=== PATIENT | female | born 1940 | race Caucasian/White ===

== ENCOUNTER 2017-01-02 22:01 | Inpatient (IN) | payer MEDICARE ==
--- NOTE | ~2017-01-02 | HP ---
History And Physical [address] [address] [place] [address] NAME: RAI MUSTAFA : 42 STATUS : DIS IN PAT#: [id number] AGE: 76 ADM/REG DATE : 01/02/17 MR#: [id number] REPORT SERV DATE: 01/20/17 DICTATED BY: ALMA ROBLEDO DATE: 01/20/17 REPORT STATUS : Draft TRANSCRIBED BY: DANA DATE: 01/20/17 DATE OF ADMISSION: 01/02/2017 CHIEF COMPLAINT: Fall at rehab with right hip pain. HISTORY OF PRESENT ILLNESS: Ms. Mustafa is a 76-year-old female who has multiple medical problems and was at a skilled rehab facility in [place]. She has had a protracted medical illness since requiring open heart surgery for acute AK in September of 2016. She required bypass surgery and had a prolonged complicated postop course. She subsequently required readmission on 12/01/2016 and was released in December of 2016, after she presented with shortness of breath and had a whiteout on her chest x-ray. The whiteout on chest x-ray was secondary to mucous plugging and resolved. She was stabilized and returned to [facility] for further rehab. She apparently had a fall at rehab and sustained pain in her right hip and was admitted with some bruising for orthopedic evaluation. 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 She was initially given medicine for pain control. She was not felt to be an operative candidate. Upon adjustment of therapy during the hospitalization. She demonstrated improvement. PAST MEDICAL HISTORY: End-stage renal disease, dialyzing Friday, Friday, Friday at [facility]; coronary artery disease, status post CABG; tracheostomy, 10/09/2016; hypertension; respiratory failure, postop; readmission for whiteout on chest x-ray due to mucous plugging; obstructive sleep apnea; atrial fibrillation; remote AK; aortic valve replacement; remote pneumonia; dysphagia requiring PEG tube; history of MRSA bacteremia; type 2 diabetes mellitus; past history of calciphylaxis; history of IVC filter. MEDICATIONS: Vitamin C 500 daily, aspirin, Lipitor, Cordarone, Coreg, Ceftin, Peridex, Colace, Lexapro, Neurontin, level 1 insulin sliding scale, Protonix, MiraLAX, Senokot, warfarin sliding scale, zinc sulfate, ProAmatine, and Zofran. ALLERGIES: SULFA, NITROFURANTOIN, CODEINE, AND SULFAMETHOXAZOLE. SOCIAL HISTORY: The patient has supportive family. No alcohol, tobacco products, or illicit drugs. REVIEW OF SYSTEMS: Severe right hip pain, gradually gaining strength with rehab, but still with some generalized weakness, swallowing improved and taking p.o. Severe right hip pain. Bruising on right shoulder and right upper extremity. No dysuria, melena, hemoptysis. Remainder of 12-point review of systems is negative. PHYSICAL EXAMINATION: GENERAL: Debilitated white female, mildly lethargic from analgesics. VITAL SIGNS: Blood pressure 113/53, temperature 98.4, respiratory rate 18, pulse 69. HEENT: Eyes, no scleral icterus. Pupils equal and reactive to light. Extraocular movements intact. Nares patent. No lesions. Throat, no injection. Mucous membranes History And Physical [address] [address] NAME: RAI MUSTAFA : 42 STATUS : DIS IN PAT#: [id number] AGE: 76 ADM/REG DATE : 01/02/17 MR#: [id number] REPORT SERV DATE: 01/20/17 DICTATED BY: ALMA ROBLEDO DATE: 01/20/17 REPORT STATUS : Draft TRANSCRIBED BY: DANA DATE: 01/20/17 moist. NECK: No thyromegaly, masses, or bruits. CHEST/LUNGS: Few late crackles posteriorly. Some scattered rhonchi. CARDIAC: Regular rate and rhythm. 1/6 systolic ejection murmur. No gallop. No rub. ABDOMEN: PEG noted. No hepatosplenomegaly, masses, or bruits. BREAST/PELVIC/RECTAL: Exam not performed. EXTREMITIES: No edema. Pain with movement of right lower extremity. No calf tenderness. DERMIS: No rash. No skin lesions. NEUROLOGIC: Generalized weakness. No lateralizing weakness. IMPRESSION: 1. [facility]. X-rays documenting avascular necrosis of the head of her right femur. 2. The patient is not a candidate for surgery. 3. End-stage renal disease, dialyzing Friday, Friday, Friday at [facility]. 4. Hypertension. 5. History of trach. 6. History of PEG. 7. Coronary artery disease with bypass grafting. 8. Remote pneumonia. 9. Obstructive sleep apnea. 10.Atrial fibrillation. 11.Aortic valve replacement. 12.History of myocardial infarction. PLAN: 1. Orthopedic consult. 2. Dialysis. 3. Monitor lab. CG/MODL Alma Robledo M.D. / [id number] CC: Yasmeen Mccray Lisa M
--- NOTE | ~2017-01-02 | DS ---
Discharge Summary [facility] [address] [place]. [address] NAME: RAI MUSTAFA : 42 STATUS : DIS IN PAT#: [id number] AGE: 76 ADM/REG DATE : 01/02/17 MR#: [id number] REPORT SERV DATE: 01/21/17 DICTATED BY: ALMA TELLEZ DATE: 01/20/17 REPORT STATUS : Draft TRANSCRIBED BY: DANA DATE: 01/20/17 ADMISSION DATE: 01/02/2017 DISCHARGE DATE: 01/07/2017 INDICATION FOR HOSPITALIZATION: Right hip pain. DISCHARGE DIAGNOSES: 1. Fall at skilled Facility with x-ray documentation of avascular necrosis of right femoral head and fracture. 2. The patient not felt to be an operative candidate. 3. End-stage renal disease, dialyzing Friday, Friday, Friday at [facility]. 4. Hypertension. 5. Anemia. 6. Obstructive sleep apnea. 7. History of atrial fibrillation. 8. Remote myocardial infarction. 9. Aortic valve replacement. 10.Prior tracheostomy. 11.Prior PEG tube. HOSPITAL COURSE: Ms. Mustafa is a 76-year-old female, who was undergoing rehab after a prolonged hospitalizations in 09/2016, 11/2016, and 12/2016. She apparently fell at the nursing facility and sustained bruising on her right upper extremity as well as pain on her right lower extremity and some bruising in her right lower extremity. X-rays documented a femoral head fracture associated with avascular necrosis. She was evaluated by Orthopedic Surgery, and she was not felt to be a candidate for surgical intervention. She was treated with analgesics and rehab with gradual improvement in her pain. She was felt stable for release at the time of discharge on 01/07/2017. She was eager to return to rehab for continued therapy. DISCHARGE MEDICATIONS: Tylenol 325 mg q.4h p.r.n.; albuterol nebulizer 3 mL of 0.83% via nebulizer four times daily p.r.n.; amiodarone 200 mg daily; aspirin 81 mg daily; Lipitor 20 mg daily; vitamin B complex with C and folic acid one capsule daily; Dulcolax one daily p.r.n.; carvedilol 3.125 mg twice daily; Peridex rinse 15 mL p.o. twice daily, swish and expectorate; Colace 100 mg twice daily, hold for loose stools; Lexapro 5 mg daily; Neurontin 100 mg twice daily; NovoLog sliding scale level 1; Lantus insulin 10 units subcu daily; midodrine 5 mg p.o. three times daily; milk of magnesia 30 mg daily p.r.n.; Zofran 4 mg q.6h p.r.n.; Protonix 40 mg p.o. b.i.d.; MiraLAX 17 g daily; Senokot two tabs p.o. twice daily p.r.n.; and warfarin 2.5 mg tablets at bedtime. ACTIVITY: The patient will progress activity per rehab. DIET: 2000-calorie ADA renal diet. FOLLOWUP: Followup will be on dialysis Friday, Friday, Friday at [facility] Discharge Summary [address] [address] NAME: RAI MUSTAFA JOSE : 42 STATUS : DIS IN PAT#: [id number] AGE: 76 ADM/REG DATE : 01/02/17 MR#: [id number] REPORT SERV DATE: 01/21/17 DICTATED BY: ALMA TELLEZ DATE: 01/20/17 REPORT STATUS : Draft TRANSCRIBED BY: DANA DATE: 01/20/17 Center. PATRICIO/DANA Alma Tellez M.D. / [id number] CC: Yasmeen Mccray
[~2017-01-02 22:01] MED LIST: ACET500CAP PO; ARANESP; ARANESP100 IV; ASAB PO; AURYXIA210 MG PO; B12 IJ; C5 PO; CAT1 PO; CINNAMON; CINNAMONPO PO; COREG12 PO; COREG25 PO; COREG3 PO; COREG6 PO; COUMADIN4 MG PO; CRAN CONC500 MG OR; CRANBERRY W/ VIT C PO; Cinnamon PO; DSS PO; EPOGEN4000 MG/ML IV; FLEX PO; HAIR/SKIN/NAILS VIT PO; HALF81 PO; L40 PO; LANTUS SC; LEVEMIR SC; LEXAPRO5 MG PO; LIPITOR20 PO; LOP25 PO; LOP50 PO; METHENAM HIP1 GM OR; MIRALAXPKT PO; NASONEX NAS; NEUR100 PO; NORV10 PO; NORV25 PO; NOVOLOG SC; PACERONE200 MG PO; PERIOGARD0.12 % MT; PHOSLO PO; PRAVAC PO; PREV30 PO; PROAMATINE10 MG PO; PROSTAT 101 IV; PROTONI1 PEG; PROVENTSOL INH; RENA-VITE PO; RENVELA800 MG PO; SENTAB PO; SEVE800T PO; VENOFER IV; VITC500 PO; ZINC220C PO; ZOFRAN4 PO
[2017-01-02] MEDS ORDERED: CORDARONE PO (22:11)
[2017-01-02] MEDS ORDERED: ASAB PO (22:11)
[2017-01-02] MEDS ORDERED: LIPITOR20 PO (22:12)
[2017-01-02] MEDS ORDERED: COREG3 PO (22:12)
[2017-01-02] MEDS ORDERED: PERIDEX PO (22:12)
[2017-01-02] MEDS ORDERED: DSS PO (22:13)
[2017-01-02] MEDS ORDERED: LEXAPRO5 MG PO (22:14)
[2017-01-02] MEDS ORDERED: LANTUSCART SC (22:14)
[2017-01-02] MEDS ORDERED: PROAMAT5 PO (22:14)
[2017-01-02] MEDS ORDERED: NEUR100 PO (22:14)
[2017-01-02] MEDS ORDERED: NOVOLOG SC (22:17)
[2017-01-02] MEDS ORDERED: MIRALAX POWDER1 PKT PO (22:17)
[2017-01-02] MEDS ORDERED: PROTONIX PO (22:17)
[2017-01-02] MEDS ORDERED: TRIPHROCAPS PO (22:18)
[2017-01-02] MEDS ORDERED: C25 PO (22:19)
[2017-01-02] MEDS ORDERED: ALBUTEROL0.083 % INH (22:24)
[2017-01-02] MEDS ORDERED: BISR PR (22:24)
[2017-01-02] MEDS ORDERED: MOMUD PO (22:25)
[2017-01-02] MEDS ORDERED: SENTAB PO (22:26)
[2017-01-02] MEDS ORDERED: ZOFRAN4 PO (22:26)
[2017-01-02] MEDS ORDERED: T PO (22:28)
[2017-01-02 22:43] LABS: BASOPHILS 0.3 %; BASOPHILS ABSOLUTE 0.02 10/3/uL (0.0-0.16); EOSINOPHILS 5.2 %; ER CBC TAT 0 Hrs 08 Mins; HEMATOCRIT 30.2 % (36.0-48.0); HEMOGLOBIN 9.4 g/dL (12.0-16.0); IMMATURE GRANULOCYTES 0.9 %; IMMATURE GRANULOCYTES ABSOLUTE 0.07 10/3/uL (0.0-0.11); LYMPHOCYTES 27.7 %; LYMPHOCYTES ABSOLUTE 2.13 10/3/uL (0.67-4.30); MEAN CORPUS HGB CONC 31.1 g/dL (32.0-36.0); MEAN CORPUSCULAR HEMOGLOB 29.7 pg (26.0-34.0); MEAN CORPUSCULAR VOLUME 95.6 fL (80-100); MEAN PLATELET VOLUME 10.4 fL (9.2-13.0); MONOCYTES ABSOLUTE 0.77 10/3/uL (0.21-1.20); NEUTROPHILS 55.9 %; PLATELET COUNT 246 10/3/uL (150-400); RED CELL COUNT 3.16 10/6/uL (4.0-5.6); WHITE BLOOD CELLS 7.7 10/3/uL (4.5-10.5)
[2017-01-02 22:47] LABS: MANUAL DIFF NO %
[2017-01-02 22:58] LABS: A/G RATIO 0.5 (0.7-1.9); ALBUMIN 2.7 G/DL (3.5-5.0); ALKALINE PHOSPHATASE 210 U/L (45-117); BUN (BLOOD UREA NITROGEN) 18 MG/DL (6-23); CALCIUM, SERUM 8.3 MG/DL (8.5-10.4); CHLORIDE, SERUM 96 MMOL/L (96-112); CO2 (CARBON DIOXIDE) 30 MMOL/L (24-34); CREATININE 3.11 MG/DL (0.55-1.02); GFR AFRICAN AMERICAN 16 ML/MIN (>=60); GFR NON AFRICAN AMERICAN 14 ML/MIN (>=60); GLOBULIN 5.2 G/DL (2.5-4.1); GLUCOSE, SERUM 317 MG/DL (60-99); POTASSIUM, SERUM 4.2 MMOL/L (3.5-5.3); SGOT(AST) 11 U/L (5-40); SGPT(ALT) 11 U/L (5-65); SODIUM, SERUM 137 MMOL/L (135-148); TOTAL BILIRUBIN 0.3 MG/DL (0-1.2); TOTAL PROTEIN 7.9 G/DL (6.0-8.5)
[2017-01-03 14:33] LABS: BASOPHILS 0.3 %; BASOPHILS ABSOLUTE 0.02 10/3/uL (0.0-0.16); EOSINOPHILS 4.7 %; EOSINOPHILS ABSOLUTE 0.32 10/3/uL (0.0-0.53); HEMATOCRIT 27.8 % (36.0-48.0); HEMOGLOBIN 8.5 g/dL (12.0-16.0); IMMATURE GRANULOCYTES 0.9 %; IMMATURE GRANULOCYTES ABSOLUTE 0.06 10/3/uL (0.0-0.11); LYMPHOCYTES 26.1 %; LYMPHOCYTES ABSOLUTE 1.76 10/3/uL (0.67-4.30); MANUAL DIFF NO %; MEAN CORPUS HGB CONC 30.6 g/dL (32.0-36.0); MEAN CORPUSCULAR HEMOGLOB 28.5 pg (26.0-34.0); MEAN CORPUSCULAR VOLUME 93.3 fL (80-100); MEAN PLATELET VOLUME 10.2 fL (9.2-13.0); MONOCYTES 8.6 %; MONOCYTES ABSOLUTE 0.58 10/3/uL (0.21-1.20); NEUTROPHILS 59.4 %; PLATELET COUNT 228 10/3/uL (150-400); RBC DISTRIBUTION WIDTH 16.9 % (12.0-16.0); RED CELL COUNT 2.98 10/6/uL (4.0-5.6); WHITE BLOOD CELLS 6.7 10/3/uL (4.5-10.5)
[2017-01-03 14:44] LABS: ALBUMIN 2.3 G/DL (3.5-5.0); CHLORIDE, SERUM 99 MMOL/L (96-112); CO2 (CARBON DIOXIDE) 27 MMOL/L (24-34); GFR AFRICAN AMERICAN 13 ML/MIN (>=60); GFR NON AFRICAN AMERICAN 11 ML/MIN (>=60); GLUCOSE, SERUM 286 MG/DL (60-99); PHOSPHORUS, SERUM 3.5 MG/DL (2.5-4.5); POTASSIUM, SERUM 4.3 MMOL/L (3.5-5.3); SODIUM, SERUM 136 MMOL/L (135-148)
[2017-01-03 14:47] LABS: BUN (BLOOD UREA NITROGEN) 23 MG/DL (6-23); CREATININE 3.74 MG/DL (0.55-1.02)
[2017-01-04 11:32] LABS: BASOPHILS 0.7 %; BASOPHILS ABSOLUTE 0.05 10/3/uL (0.0-0.16); EOSINOPHILS 3.6 %; EOSINOPHILS ABSOLUTE 0.27 10/3/uL (0.0-0.53); HEMOGLOBIN 9.5 g/dL (12.0-16.0); IMMATURE GRANULOCYTES 0.7 %; IMMATURE GRANULOCYTES ABSOLUTE 0.05 10/3/uL (0.0-0.11); LYMPHOCYTES 22.7 %; MEAN CORPUS HGB CONC 29.9 g/dL (32.0-36.0); MEAN CORPUSCULAR HEMOGLOB 29.8 pg (26.0-34.0); MONOCYTES 8.9 %; MONOCYTES ABSOLUTE 0.67 10/3/uL (0.21-1.20); NEUTROPHILS 63.4 %; NEUTROPHILS ABSOLUTE 4.75 10/3/uL (2.02-8.40); PLATELET COUNT 221 10/3/uL (150-400); RBC DISTRIBUTION WIDTH 17.2 % (12.0-16.0); RED CELL COUNT 3.19 10/6/uL (4.0-5.6); WHITE BLOOD CELLS 7.5 10/3/uL (4.5-10.5)
[2017-01-04 11:33] LABS: HEMATOCRIT 31.8 % (36.0-48.0)
[2017-01-04 11:34] LABS: MANUAL DIFF NO %; MEAN CORPUSCULAR VOLUME 99.7 fL (80-100)
[2017-01-04 11:38] LABS: INTERNATIONAL NORMAL RATI 2.5 UNITS (-)
[2017-01-04 11:39] LABS: PROTIME (NOT ORD) 26.6 SEC (12.0-14.5)
[2017-01-04 11:42] LABS: ALBUMIN 2.5 G/DL (3.5-5.0); CALCIUM, SERUM 8.3 MG/DL (8.5-10.4); CHLORIDE, SERUM 99 MMOL/L (96-112); CO2 (CARBON DIOXIDE) 28 MMOL/L (24-34); GFR AFRICAN AMERICAN 19 ML/MIN (>=60); GFR NON AFRICAN AMERICAN 17 ML/MIN (>=60); GLUCOSE, SERUM 298 MG/DL (60-99); PHOSPHORUS, SERUM 2.9 MG/DL (2.5-4.5); POTASSIUM, SERUM 4.4 MMOL/L (3.5-5.3); SODIUM, SERUM 136 MMOL/L (135-148)
[2017-01-04 11:43] LABS: BUN (BLOOD UREA NITROGEN) 13 MG/DL (6-23); CREATININE 2.69 MG/DL (0.55-1.02)
[2017-01-05 07:02] LABS: INTERNATIONAL NORMAL RATI 2.5 UNITS (-); PROTIME (NOT ORD) 26.5 SEC (12.0-14.5)
[2017-01-05 07:06] LABS: ALBUMIN 2.4 G/DL (3.5-5.0); BUN (BLOOD UREA NITROGEN) 19 MG/DL (6-23); CALCIUM, SERUM 8.9 MG/DL (8.5-10.4); CHLORIDE, SERUM 100 MMOL/L (96-112); CO2 (CARBON DIOXIDE) 26 MMOL/L (24-34); CREATININE 3.36 MG/DL (0.55-1.02); GFR AFRICAN AMERICAN 15 ML/MIN (>=60); GFR NON AFRICAN AMERICAN 13 ML/MIN (>=60); GLUCOSE, SERUM 103 MG/DL (60-99); PHOSPHORUS, SERUM 3.5 MG/DL (2.5-4.5); POTASSIUM, SERUM 4.6 MMOL/L (3.5-5.3); SODIUM, SERUM 136 MMOL/L (135-148)
[2017-01-06 05:36] LABS: ALBUMIN 2.2 G/DL (3.5-5.0); CALCIUM, SERUM 8.6 MG/DL (8.5-10.4); CHLORIDE, SERUM 98 MMOL/L (96-112); CO2 (CARBON DIOXIDE) 24 MMOL/L (24-34); GFR AFRICAN AMERICAN 11 ML/MIN (>=60); GFR NON AFRICAN AMERICAN 10 ML/MIN (>=60); GLUCOSE, SERUM 93 MG/DL (60-99); PHOSPHORUS, SERUM 3.6 MG/DL (2.5-4.5); POTASSIUM, SERUM 5.2 MMOL/L (3.5-5.3); SODIUM, SERUM 133 MMOL/L (135-148)
[2017-01-06 05:37] LABS: BUN (BLOOD UREA NITROGEN) 28 MG/DL (6-23); CREATININE 4.28 MG/DL (0.55-1.02)
[2017-01-06 15:00] LABS: INTERNATIONAL NORMAL RATI 2.6 UNITS (-); PROTIME (NOT ORD) 27.3 SEC (12.0-14.5)
[2017-01-06 15:50] LABS: BASOPHILS 0.3 %; BASOPHILS ABSOLUTE 0.02 10/3/uL (0.0-0.16); EOSINOPHILS 6.7 %; EOSINOPHILS ABSOLUTE 0.42 10/3/uL (0.0-0.53); HEMATOCRIT 28.7 % (36.0-48.0); HEMOGLOBIN 9.1 g/dL (12.0-16.0); IMMATURE GRANULOCYTES 0.5 %; IMMATURE GRANULOCYTES ABSOLUTE 0.03 10/3/uL (0.0-0.11); LYMPHOCYTES 26.5 %; LYMPHOCYTES ABSOLUTE 1.66 10/3/uL (0.67-4.30); MEAN CORPUSCULAR HEMOGLOB 29.8 pg (26.0-34.0); MONOCYTES 7.3 %; MONOCYTES ABSOLUTE 0.46 10/3/uL (0.21-1.20); NEUTROPHILS 58.7 %; NEUTROPHILS ABSOLUTE 3.67 10/3/uL (2.02-8.40); PLATELET COUNT 229 10/3/uL (150-400); RBC DISTRIBUTION WIDTH 17.2 % (12.0-16.0); RED CELL COUNT 3.05 10/6/uL (4.0-5.6); WHITE BLOOD CELLS 6.3 10/3/uL (4.5-10.5)
[2017-01-06 15:52] LABS: MANUAL DIFF NO %; MEAN CORPUS HGB CONC 31.7 g/dL (32.0-36.0); MEAN CORPUSCULAR VOLUME 94.1 fL (80-100)
[2017-01-07 07:29] LABS: BASOPHILS 0.5 %; BASOPHILS ABSOLUTE 0.03 10/3/uL (0.0-0.16); EOSINOPHILS 7.1 %; EOSINOPHILS ABSOLUTE 0.43 10/3/uL (0.0-0.53); HEMATOCRIT 27.3 % (36.0-48.0); HEMOGLOBIN 8.2 g/dL (12.0-16.0); IMMATURE GRANULOCYTES 0.8 %; IMMATURE GRANULOCYTES ABSOLUTE 0.05 10/3/uL (0.0-0.11); LYMPHOCYTES 27.2 %; LYMPHOCYTES ABSOLUTE 1.64 10/3/uL (0.67-4.30); MANUAL DIFF NO %; MEAN CORPUSCULAR HEMOGLOB 28.6 pg (26.0-34.0); MEAN CORPUSCULAR VOLUME 95.1 fL (80-100); MEAN PLATELET VOLUME 9.8 fL (9.2-13.0); MONOCYTES 8.3 %; NEUTROPHILS 56.1 %; NEUTROPHILS ABSOLUTE 3.39 10/3/uL (2.02-8.40); PLATELET COUNT 219 10/3/uL (150-400); RBC DISTRIBUTION WIDTH 17.3 % (12.0-16.0); RED CELL COUNT 2.87 10/6/uL (4.0-5.6)
[2017-01-07 07:36] LABS: INTERNATIONAL NORMAL RATI 2.2 UNITS (-); PROTIME (NOT ORD) 24.6 SEC (12.0-14.5)
[2017-01-07 07:51] LABS: ALBUMIN 2.2 G/DL (3.5-5.0); CALCIUM, SERUM 8.5 MG/DL (8.5-10.4); CHLORIDE, SERUM 101 MMOL/L (96-112); GFR AFRICAN AMERICAN 21 ML/MIN (>=60); GFR NON AFRICAN AMERICAN 18 ML/MIN (>=60); GLUCOSE, SERUM 86 MG/DL (60-99); PHOSPHORUS, SERUM 3.4 MG/DL (2.5-4.5); POTASSIUM, SERUM 4.5 MMOL/L (3.5-5.3); SODIUM, SERUM 138 MMOL/L (135-148)
[2017-01-07 07:52] LABS: BUN (BLOOD UREA NITROGEN) 12 MG/DL (6-23); CO2 (CARBON DIOXIDE) 29 MMOL/L (24-34); CREATININE 2.54 MG/DL (0.55-1.02)
[2017-02-01] MEDS ORDERED: ASAB PO (22:50)
[2017-02-01] MEDS ORDERED: CORDARONE PO (22:50)
[2017-02-01] MEDS ORDERED: COREG3 PO (22:51)
[2017-02-01] MEDS ORDERED: LIPITOR20 PO (22:51)
[2017-02-01] MEDS ORDERED: PERIDEX PO (22:53)
[2017-02-01] MEDS ORDERED: C1 PO (22:53)
[2017-02-01] MEDS ORDERED: DSS PO (22:54)
[2017-02-01] MEDS ORDERED: LEXAPRO5 MG PO (22:54)
[2017-02-01] MEDS ORDERED: NEUR100 PO (22:54)
[2017-02-01] MEDS ORDERED: MAGOX4 PO (22:55)
[2017-02-01] MEDS ORDERED: LANTUSCART SC (22:55)
[2017-02-01] MEDS ORDERED: PROAMAT5 PO (22:56)
[2017-02-01] MEDS ORDERED: NOVOPEN SC (22:57)
[2017-02-01] MEDS ORDERED: PRILOSEC40 MG PO (22:57)
[2017-02-01] MEDS ORDERED: MIRALAX POWDER1 PKT PO (22:58)
[2017-02-01] MEDS ORDERED: TRIPHROCAPS PO (22:58)
[2017-02-01] MEDS ORDERED: BETADINE SOLUTIO4 OZ TOP (22:59)
[2017-02-01] MEDS ORDERED: T PO (23:00)
[2017-02-01] MEDS ORDERED: ALBUTEROL0.083 % INH (23:00)
[2017-02-01] MEDS ORDERED: NORCO1 TA1 PO (23:01)
[2017-02-01] MEDS ORDERED: BISR PR (23:01)
[2017-02-01] MEDS ORDERED: ZOFRAN4 PO (23:02)
[2017-02-01] MEDS ORDERED: MOMUD PO (23:02)
[2017-02-01] MEDS ORDERED: SENTAB PO (23:03)
== END 2017-01-07 15:50 | DRG 553 ==
LOC: ER 22:01 → 4SO 22:18
PROVIDERS: Emergency Medicine; Internal Medicine Nephrology; Registered Nurse
PROC: 5A1D60Z (ICD-10-PCS; principal; 2017-01-03)
DX: M87.851 Other osteonecrosis, right femur (principal); S72.011A Unspecified intracapsular fracture of right femur, initial encounter for closed fracture; N18.6 End stage renal disease; E11.22 Type 2 diabetes mellitus with diabetic chronic kidney disease; I48.2 Chronic atrial fibrillation; I50.9 Heart failure, unspecified; W18.39XA Other fall on same level, initial encounter; Y92.239 Unspecified place in hospital as the place of occurrence of the external cause; M25.511 Pain in right shoulder; G47.33 Obstructive sleep apnea (adult) (pediatric); I25.10 Atherosclerotic heart disease of native coronary artery without angina pectoris; I25.2 Old myocardial infarction; Z99.2 Dependence on renal dialysis; Z79.01 Long term (current) use of anticoagulants; M79.671 Pain in right foot; R53.1 Weakness; Z88.2 Allergy status to sulfonamides; Z88.5 Allergy status to narcotic agent; Z88.1 Allergy status to other antibiotic agents; Z88.8 Allergy status to other drugs, medicaments and biological substances; Z79.891 Long term (current) use of opiate analgesic; Z79.82 Long term (current) use of aspirin; Z79.4 Long term (current) use of insulin; Z95.2 Presence of prosthetic heart valve; Z95.1 Presence of aortocoronary bypass graft
CPT/HCPCS: 71010; 73060-RT; 73630-RT; 73700; 80053; 80069; 82962; 83735; 84550; 85025; 85610; 94640; 97110-GP; 97162-GP; 97165-GO; 97530-GP; 97535-GO; 99285; A9270-GY; G0257; G8978-CL-GP; G8979-CL-GP

== ENCOUNTER 2017-02-01 23:03 | Inpatient (IN) | payer MEDICARE ==
--- NOTE | ~2017-02-01 | HP ---
History And Physical [address] [id number] [place]. [address] NAME: RAI ALICEA : 42 STATUS : ADM IN PAT#: [id number] AGE: 76 ADM/REG DATE : 02/02/17 MR#: [id number] REPORT SERV DATE: 02/02/17 DICTATED BY: CARMELO MAGALLON DATE: 02/02/17 REPORT STATUS : Draft TRANSCRIBED BY: MODRicardo DATE: 02/02/17 DATE OF ADMISSION: 02/02/2017 CHIEF COMPLAINT: Fevers, diarrhea, and nausea. HISTORY OF PRESENT ILLNESS: The patient recorded to have a 101 fever in the ER. She states she was in her usual state of health but has been having fevers and chills over the last two to three days. She had a recent bout of gastroenteritis that was traveling through the [facility]. The patient with an extensive history of emergent bypass in 09/2016 with prolonged postoperative course requiring tracheostomy, PEG placement noted to have a vascular necrosis of the right hip nonoperative in the setting of hypertension, obstructive sleep apnea, diabetes. She has also had a history of MRSA sepsis in the recent past, atrial fibrillation on Coumadin therapy as well. Workup in the ER revealed a hemoglobin of 6.4, transfused 2 units to 7.6 today. White count noted to be 12.3, and we are asked to admit for further evaluation and management of multiple medical problems including fevers and anemia primarily. PAST MEDICAL HISTORY: 1. Extensive as noted above but includes end-stage renal disease, hemodialysis on Friday, Friday, and Friday at [facility]. 2. Coronary artery disease, status post emergent CABG in 09/2016 with postoperative course with respiratory failure, tracheostomy 10/09/2016, PEG tube placement as well. Both have since been removed. 3. Hypertension. 4. Obstructive sleep apnea. 5. Atrial fibrillation on Coumadin therapy. 6. History of mucous plugging with whiteout of chest x-ray. 7. Aortic valve replacement. 8. MRSA sepsis. 9. Diabetes mellitus type 2. 10.History of calciphylaxis. 11.History of IVC filter. 12.Chronic debility currently undergoing therapy. MEDICATIONS: Include Tylenol, albuterol, amiodarone 200 mg daily, aspirin 81 mg daily, Lipitor 20 mg at bedtime, B complex vitamin daily, Dulcolax p.r.n., Coreg 1.5625 mg p.o. b.i.d., chlorhexidine, Colace p.r.n., Lexapro 5 mg daily, Neurontin 100 mg b.i.d., Golden p.r.n., sliding-scale insulin and glargine insulin 10 units daily, magnesium oxide 400 mg daily, midodrine 5 mg with meals, milk of magnesia p.r.n., Prilosec 40 mg b.i.d., Zofran 4 mg every 6 hours p.r.n., MiraLax daily, Betadine daily, Senokot p.r.n. for constipation, and Coumadin 3.5 mg daily. ALLERGIES: MULTIPLE INCLUDE NITROFURANTOIN. ADVERSE REACTIONS INCLUDE SULFA, CODEINE, FLUCONAZOLE, AND AMOXICILLIN. SOCIAL HISTORY: Currently resides at [facility] and is transported to dialysis by History And Physical [address] [address] NAME: RAI ALICEA JOSE : 42 STATUS : ADM IN [facility]#: [id number] AGE: 76 ADM/REG DATE : 02/02/17 MR#: [id number] REPORT SERV DATE: 02/02/17 DICTATED BY: CARMELO MAGALLON DATE: 02/02/17 REPORT STATUS : Draft TRANSCRIBED BY: DANA DATE: 02/02/17 ambulance. Denies tobacco, alcohol, or illicit drug use. FAMILY HISTORY: No history of renal disease. REVIEW OF SYSTEMS: Negative except as mentioned in HPI. PHYSICAL EXAMINATION: VITAL SIGNS: Temperature 98.8, blood pressure 119/36, pulse is 54, respiratory rate is 20. GENERAL: Well-developed, chronically ill-appearing, white female, in no acute distress. HEENT: Normocephalic and atraumatic. Pupils are equal, round, and reactive to light. Mucous membranes are dry. NECK: Supple. No thyromegaly. CARDIOVASCULAR: Regular rate and rhythm. No murmurs. Normal S1, S2. RESPIRATORY: Clear to auscultation bilaterally with decreased breath sounds at bases. ABDOMEN: Soft, nontender, nondistended. Positive bowel sounds. EXTREMITIES: No clubbing, cyanosis, or edema. Bilateral dry ulcerations with Betadine noted of medial aspect of bilateral feet at bunion regions. SKIN: No rashes or ulcerations. NEURO: Moves all extremities well. No focal deficits. Normal sensation in all extremities. Generalized weakness noted. PSYCH: Oriented x3 with flat affect. LABORATORY DATA: Sodium 138, potassium 4.6, chloride 98, bicarb 29, BUN is 30, creatinine of 3.55, glucose is 98, calcium 8.2. White count 12.3, hemoglobin 7.6, platelet count 287. INR is 1.9. Albumin 2.1. LFTs are normal. Lactic acid 1.3. Flu is negative. Chest x-ray reveals mild congestive changes. ASSESSMENT AND PLAN: 1. End-stage renal disease, [facility], hemodialysis Friday, protect access. 2. Fevers with leukocytosis. Afebrile thus far. Blood cultures and stool studies are pending. Check procalcitonin. Follow up on cultures. Check CT scan of chest, abdomen, and pelvis given extensive hospitalizations. Currently residing at care home. ID consulted if no better. Initiate empiric antibiotics including Levaquin. 3. Anemia. Hemoglobin low on admission on Coumadin therapy. Heme check stools. Status post transfusion. Check C. diff. Stool for C. diff as well. If heme stools are positive, we will consult GI for evaluation. Initiate diet at this time. 4. Diabetes mellitus type 2. Sliding scale insulin and Accu-Cheks. 5. Hypertension. Resume home medications. 6. Chronic hypotension. Resume midodrine. 7. Bilateral foot ulcerations. Does not appear to be source of infection. Plan is for continued wound care. 8. Atrial fibrillation. Hold Coumadin secondary to anemia. Follow up on heme stools. 9. Prophylaxis. SCDs. History And Physical [address] [address] NAME: RAI ALICEA JOSE : 42 STATUS : ADM IN [facility]#: [id number] AGE: 76 ADM/REG DATE : 02/02/17 MR#: [id number] REPORT SERV DATE: 02/02/17 DICTATED BY: CARMELO MAGALLON DATE: 02/02/17 REPORT STATUS : Draft TRANSCRIBED BY: DANA DATE: 02/02/17 NCP/MODL Carmelo Magallon M.D. / [id number] CC: Yasmeen Doll
--- NOTE | ~2017-02-01 | EGD ---
EGD REPORT [facility] [address] [place] [address] NAME: NANETTE MUSTAFA : 42 STATUS : ADM IN PAT#: [id number] AGE: 76 ADM/REG DATE : 02/02/17 MR#: [id number] REPORT SERV DATE: 02/05/17 DICTATED BY: JOSÉ MANUEL SIDDIQUI DATE: 02/05/17 REPORT STATUS : Draft TRANSCRIBED BY: [facility] DATE: 02/05/17 [facility] Patient Name: Nanette Mustafa Date of : 1940 Attending MD: JOSÉ MANUEL SIDDIQUI MD Procedure Date No Time: 02/05/2017 Procedure: Colonoscopy Indications: Anemia with heme positive stool; prior negative EGD and colonoscopy Referring MD: AMERICA BLANCO Medicines: Monitored Anesthesia Care Complications: No immediate complications. Estimated blood loss: None. Procedure: Pre-Anesthesia Assessment: - ASA Grade Assessment: IV - A patient with severe systemic disease that is a constant threat to life. After I obtained informed consent, the scope was passed under direct vision. Throughout the procedure, the patient's blood pressure, pulse, and oxygen saturations were monitored continuously. The CF [id number] was introduced through the anus and advanced to the cecum, identified by appendiceal orifice and ileocecal valve. The colonoscopy was performed without difficulty. The patient tolerated the procedure well. The quality of the bowel preparation was fair. Findings: The perianal and digital rectal examinations were normal. Pertinent negatives include no palpable rectal lesions. Multiple small-mouthed diverticula were found in the sigmoid colon, in the transverse colon, in the ascending colon and in the cecum. The exam was otherwise without abnormality on direct and retroflexion views. Impression: - Diverticulosis in the sigmoid colon, in the transverse colon, in the ascending colon and in the cecum. - The examination was otherwise normal on direct and retroflexion views. Recommendation: - Perform an upper GI endoscopy today. - To visualize the small bowel, perform video capsule endoscopy today. Procedure Code(s): --- Professional --- 36483, Colonoscopy, flexible, proximal to splenic flexure; diagnostic, with or without collection of EGD REPORT [address] [place]. [address] NAME: NANETTE MUSTAFA JOSE : 42 STATUS : ADM IN [facility]#: [id number] AGE: 76 ADM/REG DATE : 02/02/17 MR#: [id number] REPORT SERV DATE: 02/05/17 DICTATED BY: JOSÉ MANUEL SIDDIQUI DATE: 02/05/17 REPORT STATUS : Draft TRANSCRIBED BY: [employer] DATE: 02/05/17 specimen(s) by brushing or washing, with or without colon decompression (separate procedure) Diagnosis Code(s): --- Professional --- K57.30, Diverticulosis of large intestine without perforation or abscess without bleeding D64.9, Anemia, unspecified CPT copyright 2013 [employer]. All rights reserved. The codes documented in this report are preliminary and upon training and development officer review may be revised to meet current compliance requirements. José Manuel Siddiqui MD JOSÉ MANUEL SIDDIQUI MD 02/05/2017 7:55 AM This report has been signed electronically. Number of Addenda: 0 Note Initiated On: 02/05/2017 7:14 AM Scope Withdrawal Time 0 hours 9 minutes [address] [place], [place] [address]mar[place] [address]
--- NOTE | ~2017-02-01 | CN ---
Consultation Report [facility] [address] [place]. [address] NAME: RAI MUSTAFA : 42 STATUS : ADM IN PAT#: [id number] AGE: 76 ADM/REG DATE : 02/02/17 MR#: [id number] REPORT SERV DATE: 02/03/17 DICTATED BY: JASEN SMITH DATE: 02/03/17 REPORT STATUS : Draft TRANSCRIBED BY: MODRicardo DATE: 02/03/17 GI CONSULTATION DATE OF CONSULTATION: 02/03/2017 REASON FOR CONSULTATION: Evaluation and management of anemia, Hemoccult-positive stools. HISTORY OF PRESENT ILLNESS: Ms. Mustafa is a 76-year-old female patient, who has been seen by us in the past. She was admitted on 02/02/2017 from the group home secondary to fevers and chills. She was found to have a low hemoglobin at 6.4 when she was sent over, presently her hemoglobin is 8.4. She has received packed red blood cells. Her stools were found to be Hemoccult positive. It appears that she has been having fever and chills over the last two-three days as well as recovering from a recent bout of gastroenteritis that was seen throughout by several people in the group home where she was residing. We saw her in 10/2016 for a PEG tube following a non-STEMI with her undergoing redo CABG x1 with several setbacks from that surgery including septic shock secondary to pneumonia, mucous plugging, atrial fibrillation, failure to wean from the vent. We subsequently placed a PEG tube on 10/16/2016. She tolerated that well. She said it has been out for several months secondary to infection. She was seen again in 11/2016. Dr. Szymanski performed colonoscopy secondary to melena complaint with findings on that exam showing melanosis coli, diverticulosis of the sigmoid colon, she had polyps in the ascending colon that were removed as well as polyps in the rectosigmoid colon removed, a single nonbleeding colonic angioectasia that was treated with thermal therapy. She then underwent an EGD by Dr. Szymanski on that same day, 11/03/2016, with the Z-line being irregular. Biopsies were taken of hiatal hernia. The PEG tube at that time was normal as well as a normal duodenum. Talking to the patient during her dialysis treatment, she is adamant she is not undergoing another colonoscopy. She states she herself has not seen any blood and "I have been through so much, I did not want to do this again." I have discussed with her the rationale, possibility of colonic AVMs bleeding. She could be Hemoccult positive secondary to recent gastroenteritis, but with her being on Coumadin therapy if she has AVMs that is needed to be treated, however, she still adamantly declines colonoscopy at this point in time. Her C diff stool tests have been negative. Occult blood has been positive x1. She has had a CT of the abdomen and pelvis, which was nondiagnostic from a GI standpoint. CT of the chest is pending. I have discussed with the patient. We will follow along. We will revisit colonoscopy with her in the morning if she has joo blood and/or decrease in her hemoglobin. PAST MEDICAL HISTORY: End-stage renal disease requiring dialysis, coronary artery disease status post emergent CABG in 09/2016; subsequently suffering from respiratory failure with trach and PEG since those have been both removed, hypertension, obstructive sleep apnea; atrial fibrillation, on Coumadin; mucous plugging; aortic valve replacement; MRSA sepsis; diabetes type 2; IVC filter placement; chronic debility, undergoing therapy; diverticulosis; colon polyps; melanosis coli; internal hemorrhoids; vaginal cancer, status post cryotherapy; hiatal hernia. Consultation Report [address] [place]. [address] NAME: RAI MUSTAFA : 42 STATUS : ADM IN [facility]#: [id number] AGE: 76 ADM/REG DATE : 02/02/17 MR#: [id number] REPORT SERV DATE: 02/03/17 DICTATED BY: JASEN SMITH DATE: 02/03/17 REPORT STATUS : Draft TRANSCRIBED BY: DANA DATE: 02/03/17 FAMILY HISTORY: Noncontributory from GI standpoint. SOCIAL HISTORY: . Lives at the group home in [place]. No alcohol, tobacco, or illicits. ALLERGIES: LISTED TO SULFA, CODEINE, FLUCONAZOLE, AMOXICILLIN, AND NITROFURANTOIN. HOME MEDICATIONS: Tylenol, albuterol, Cordarone, aspirin, Lipitor, B-complex with folic acid, Dulcolax, Coreg, Peridex rinse, Colace, Lexapro, Neurontin, Henriette, NovoLog, Lantus, magnesium oxide, ProAmatine, milk of magnesia, Prilosec, Zofran, MiraLAX, Betadine, Senokot, and Coumadin. REVIEW OF SYSTEMS: A 10-point review of systems is obtained. Pertinent positives addressed in the history of present illness. PHYSICAL EXAMINATION: VITAL SIGNS: Temperature maximum is 100.2, presently 99.0; pulse is 63, respirations 14, blood pressure 130/62. NEURO: Reveals a 76-year-old female, resting in bed in dialysis treatment unit #2. She awakens to her name. She is oriented x3. GENERAL: She is cooperative. She is in no obvious acute distress. She is chronically ill appearing. HEAD, EARS, EYES, NOSE, AND THROAT: Anicteric. Pupils are equal, round, and reactive to light and accommodation. Normocephalic and atraumatic. NECK: No JVD. No palpable nodes. LUNGS: Diminished throughout. Normal respiratory effort exhibited. CARDIOVASCULAR: Regular rate and rhythm. ABDOMEN: Soft, nontender, nondistended, with active bowel sounds in all four quadrants. Extremities: Notable for bilateral lower extremity ulcers. SKIN: Dry and intact with notable bruising areas. PERTINENT LABORATORY DATA: Sodium 138, potassium 4.6, BUN is 30, creatinine 3.55. White count 12.3, hemoglobin 8.4, hematocrit 26.5. INR of 1.9. C diff stool negative, occult blood positive. ASSESSMENT: 1. Acute on chronic anemia. 2. Hemoccult-positive stools without overt gastrointestinal bleeding. 3. End-stage renal disease with dialysis dependence. 4. Fever and leukocytosis. 5. History of colonic arteriovenous malformations, treated in November. 6. Recent gastroenteritis bout. 7. Atrial fibrillation, on Coumadin. Consultation Report [address] [address] NAME: RAI MUSTAFA : 42 STATUS : ADM IN [facility]#: [id number] AGE: 76 ADM/REG DATE : 02/02/17 MR#: [id number] REPORT SERV DATE: 02/03/17 DICTATED BY: JASEN SMITH DATE: 02/03/17 REPORT STATUS : Draft TRANSCRIBED BY: DANA DATE: 02/03/17 PLAN: 1. We will monitor hemoglobin and hematocrit. 2. Monitor for gross GI bleeding. The patient at this point in time is adamant she is not having another colonoscopy since she just had one on 11/03/2016. 3. We will revisit with the patient in the morning. We will reassess hemoglobin, GI blood loss, and discuss colonoscopy further. DARIA/DANA [place] TRISHA [place] / [id number] CC: Yasmeen Doll LISA M *
--- NOTE | ~2017-02-01 | DS ---
Discharge Summary [place] [address] [facility] [place]. [address] NAME: RAI ALICEA : 42 STATUS : DIS IN PAT#: [id number] AGE: 76 ADM/REG DATE : 02/02/17 MR#: [id number] REPORT SERV DATE: 02/14/17 DICTATED BY: ALMA TELLEZ DATE: 02/13/17 REPORT STATUS : Draft TRANSCRIBED BY: DANA DATE: 02/13/17 Data Collection from hospitalization DISCHARGE DIAGNOSIS(ES): 1. Fever, elevated WBCs. 2. Gastrointestinal bleed? of small bowel tumor. 3. Acute on chronic anemia secondary to gastrointestinal bleed. 4. End-stage renal disease. 5. Atrial fibrillation. Coumadin on hold. 6. Diabetes mellitus. CONSULTATIONS: TRISHA Wallace. PROCEDURES PERFORMED: 1. CT of the abdomen and pelvis without contrast, 02/02/2017. 2. CT of the chest without contrast, 02/02/2017. 3. Colonoscopy, 02/05/2017. 4. Upper gastrointestinal endoscopy, 02/05/2017. 5. CT of the abdomen and pelvis with contrast, 02/07/2017. MEDICATIONS: Aspirin 81 mg daily, Lipitor 20 mg at bedtime, amiodarone 200 mg daily, Coreg 1.5625 mg twice daily, Peridex Rinse 15 mL twice daily, Lexapro 5 mg daily, Neurontin 100 mg twice daily, Lantus SoloSTAR 10 units subcutaneously daily, NovoLog insulin level 1 sliding scale before meals and at bedtime, Claritin 10 mg daily, Mag-Ox 400 mg daily, Prilosec 40 mg before breakfast and supper, Florastor one twice daily, ProAmatine 5 mg with meals, Tylenol 325 to 650 mg every four hours as needed, Tylenol 650 mg every four hours as needed, Dulcolax 10 mg rectally daily as needed, Colace 100 mg twice daily, [place] 5/325 one every six hours as needed, nitroglycerin 0.4 mg sublingually as needed, Zofran 4 mg every six hours as needed, Senokot two tablets twice daily as needed, albuterol one nebulizer four times daily as needed, MiraLAX powder one packet daily, B complex with C and folic acid one daily, Betadine solution apply twice daily, milk of magnesia 30 mL daily as needed. CONDITION AT DISCHARGE: Upon discharge, she did appear to be doing well and had no complaints. DISPOSITION: She had been discharged with transfer to [facility] to continue a GI soft diet. She was also to continue oxygen at 1 L as directed. She was to continue with Physical Therapy. She was to follow up with her GI physician in two to three weeks. HOSPITAL COURSE: This patient recorded to have a 101 degree fever in the emergency room. She stated that she was in her usual state of health, but had been having fevers and chills over the last two to three days prior to admission. She had a recent bout of gastroenteritis that was traveling through the [facility]. She had an extensive history of emergent bypass in 09/2016 with prolonged postoperative course requiring tracheostomy, PEG placement, and noted to have avascular necrosis of the right hip, nonoperative, in the setting of hypertension, obstructive sleep apnea, and diabetes. She had also had a history of MRSA sepsis in the recent past; atrial fibrillation, on Coumadin therapy as well. Workup in the emergency room had revealed a hemoglobin of 6.4, Discharge Summary [address] [address] NAME: RAI ALICEA : 42 STATUS : DIS IN PAT#: [id number] AGE: 76 ADM/REG DATE : 02/02/17 MR#: [id number] REPORT SERV DATE: 02/14/17 DICTATED BY: ALMA TELLEZ DATE: 02/13/17 REPORT STATUS : Draft TRANSCRIBED BY: DANA DATE: 02/13/17 transfused 2 units with a hemoglobin following this at 7.6, white count noted to be 12.3, and she was admitted for further evaluation and management of multiple medical problems including fever and anemia primarily. Upon admission to the hospital, she had been placed on an n.p.o. diet. She did undergo the above transfusion. She was placed on Protonix 80 mg IV twice daily as well as electrolyte replacement protocol. She did undergo the above CT of the abdomen and pelvis without contrast, as well as CT of the chest without contrast. Following the day of admission, she had been evaluated by [facility] as well as Dr. José Manuel Espino for GI evaluation, and her hemoglobin and hematocrit were to be monitored, and she was also to be monitored for gross GI bleeding. At that point, she was adamant that she was not having another colonoscopy, as she just had one in 11/2016. This was to be revisited with the patient. On the morning of 02/04/2017, she had also undergone evaluation by Physical Therapy. Hemodialysis was continued during her hospitalization. On 02/04/2017, she was alert and oriented. She did state that she had had some dark-looking stool the week prior to admission, but no bright red bleeding. She was now agreeable to scopes after a long discussion with her. Her hemoglobin was at 7.0, hematocrit 22.3, INR 1.8. She was given vitamin K 5 mg orally x1 dose and her Coumadin was placed on hold. She had been checked for Clostridium difficile, which was noted to have been negative. On 02/05/2017, she did undergo the above EGD and colonoscopy, which were both noted to be negative and a PillCam had been placed. No signs of blood were noted on either examination. She did tolerate both examinations well and was transferred to the recovery room. On 02/06/2017, she did remain in stable condition. However, was noted to have had loose bowel movements since the colonoscopy. Her small bowel capsule had revealed evidence of possible submucosal tumor in the mid to small bowel, which was felt to be the possible source of the blood loss. She had no nausea, vomiting, or abdominal pain, and no signs of bloody or black stools noted. She was to undergo a CT enterography for assessment of the possible small bowel nodule versus tumor and her hemoglobin was to be monitored, and she was to undergo transfusion as needed. On 02/07/2017, she did undergo the above CT of the abdomen and pelvis with contrast. She tolerated this well and was taken back to her room. On 02/08/2017, she had no complaints and was requesting discharge. Her hemoglobin was at 8.0, hematocrit 25.6. She was continued on supportive care and had no new complaints noted. She did remain in stable condition and as she continued to do well, she was then discharged on 02/09/2017 with the above instructions. Information collected by: Johnna MonroyT. I submit the above information as my discharge summary. DEANNA/DANA Alma Tellez M.D. / [id number] CC: [facility] Discharge Summary [address] [address] NAME: RAI ALICEA JOSE : 42 STATUS : DIS IN PAT#: [id number] AGE: 76 ADM/REG DATE : 02/02/17 MR#: [id number] REPORT SERV DATE: 02/14/17 DICTATED BY: ALMA TELLEZ DATE: 02/13/17 REPORT STATUS : Draft TRANSCRIBED BY: DANA DATE: 02/13/17 José Manuel Espino MD
--- NOTE | ~2017-02-01 | EGD ---
EGD REPORT [facility] [address] [place] [address] NAME: NANETTE MUSTAFA : 44 STATUS : ADM IN PAT#: [id number] AGE: 76 ADM/REG DATE : 02/02/17 MR#: [id number] REPORT SERV DATE: 02/05/17 DICTATED BY: JOSÉ MANUEL SIDDIQUI DATE: 02/05/17 REPORT STATUS : Draft TRANSCRIBED BY: [facility] DATE: 02/05/17 Endoscopy Center Patient Name: Nanette Mustafa Date of : 1940 Attending MD: JOSÉ MANUEL SIDDIQUI MD Procedure Date No Time: 02/05/2017 Procedure: Upper GI endoscopy Indications: Anemia with heme positive stool and previous negative EGD and colonoscopy Referring MD: AMERICA BLANCO Medicines: Monitored Anesthesia Care Complications: No immediate complications. Estimated blood loss: None. Procedure: Pre-Anesthesia Assessment: - ASA Grade Assessment: IV - A patient with severe systemic disease that is a constant threat to life. After obtaining informed consent, the endoscope was passed under direct vision. Throughout the procedure, the patient's blood pressure, pulse, and oxygen saturations were monitored continuously. The GIF [id number] was introduced through the mouth, and advanced to the third part of duodenum. The upper GI endoscopy was accomplished without difficulty. The patient tolerated the procedure well. Findings: The examined esophagus was normal. There was evidence of a closed previous gastrostomy present on the anterior wall of the gastric body. This was characterized by healthy appearing mucosa. The examined duodenum was normal. The cardia and gastric fundus were normal on retroflexion. The exam was otherwise without abnormality. Using the endoscope, the video capsule enteroscope was advanced into the duodenal bulb. Impression: - Closed previous gastrostomy present characterized by healthy appearing mucosa. - The examination was otherwise normal. - Successful completion of the Video Capsule Enteroscope placement. Recommendation: - Return patient to hospital [facility] for ongoing care. - Follow up on results of Pillcam tomorrow Procedure Code(s): --- Professional --- EGD REPORT [facility] [address] [place]. [address] NAME: NANETTE MUSTAFA JOSE : 44 STATUS : ADM IN [facility]#: [id number] AGE: 76 ADM/REG DATE : 02/02/17 MR#: [id number] REPORT SERV DATE: 02/05/17 DICTATED BY: JOSÉ MANUEL SIDDIQUI DATE: 02/05/17 REPORT STATUS : Draft TRANSCRIBED BY: [facility] DATE: 02/05/17 [address], Esophagogastroduodenoscopy, flexible, transoral; diagnostic, including collection of specimen(s) by brushing or washing, when performed (separate procedure) Diagnosis Code(s): --- Professional --- Z98.89, Other specified postprocedural states D64.9, Anemia, unspecified CPT copyright 2013 [employer] [place] [employer]. All rights reserved. The codes documented in this report are preliminary and upon curtain worker review may be revised to meet current compliance requirements. José Manuel Siddiqui MD JOSÉ MANUEL SIDDIQUI MD 02/05/2017 8:15 AM This report has been signed electronically. Number of Addenda: 0 Note Initiated On: 02/05/2017 7:19 AM Scope Withdrawal Time 0 hours 0 minutes 0 seconds [address] [place] [address]
[2017-02-01 22:46] LABS: BASOPHILS 0.2 %; BASOPHILS ABSOLUTE 0.02 10/3/uL (0.0-0.16); EOSINOPHILS 1.2 %; EOSINOPHILS ABSOLUTE 0.15 10/3/uL (0.0-0.53); IMMATURE GRANULOCYTES 0.6 %; IMMATURE GRANULOCYTES ABSOLUTE 0.07 10/3/uL (0.0-0.11); LYMPHOCYTES 18.8 %; LYMPHOCYTES ABSOLUTE 2.31 10/3/uL (0.67-4.30); MEAN CORPUS HGB CONC 30.8 g/dL (32.0-36.0); MEAN CORPUSCULAR HEMOGLOB 29.6 pg (26.0-34.0); MEAN CORPUSCULAR VOLUME 96.3 fL (80-100); MEAN PLATELET VOLUME 9.8 fL (9.2-13.0); MONOCYTES 7.6 %; MONOCYTES ABSOLUTE 0.93 10/3/uL (0.21-1.20); NEUTROPHILS 71.6 %; NEUTROPHILS ABSOLUTE 8.82 10/3/uL (2.02-8.40); RBC DISTRIBUTION WIDTH 17.7 % (12.0-16.0)
[2017-02-01 22:48] LABS: ER CBC TAT 0 Hrs 07 Mins; HEMATOCRIT 20.8 % (36.0-48.0); HEMOGLOBIN 6.4 g/dL (12.0-16.0); PLATELET COUNT 287 10/3/uL (150-400); RED CELL COUNT 2.16 10/6/uL (4.0-5.6); WHITE BLOOD CELLS 12.3 10/3/uL (4.5-10.5)
[2017-02-01 22:50] LABS: MANUAL DIFF NO %
[2017-02-01 23:01] LABS: A/G RATIO 0.5 (0.7-1.9); ALBUMIN 2.2 G/DL (3.5-5.0); CALCIUM, SERUM 8.3 MG/DL (8.5-10.4); CHLORIDE, SERUM 99 MMOL/L (96-112); CO2 (CARBON DIOXIDE) 30 MMOL/L (24-34); GLOBULIN 4.7 G/DL (2.5-4.1); POTASSIUM, SERUM 5.2 MMOL/L (3.5-5.3); SGOT(AST) 14 U/L (5-40); SGPT(ALT) 7 U/L (5-65); SODIUM, SERUM 138 MMOL/L (135-148); TOTAL BILIRUBIN 0.4 MG/DL (0-1.2); TOTAL PROTEIN 6.9 G/DL (6.0-8.5)
[2017-02-01 23:03] LABS: LACTATE 1.3 MMOL/L (0.3-2.4)
[2017-02-01 23:03] LABS: ALKALINE PHOSPHATASE 93 U/L (45-117); BUN (BLOOD UREA NITROGEN) 28 MG/DL (6-23); CREATININE 3.39 MG/DL (0.55-1.02); GFR AFRICAN AMERICAN 15 ML/MIN (>=60); GFR NON AFRICAN AMERICAN 13 ML/MIN (>=60); GLUCOSE, SERUM 107 MG/DL (60-99)
[~2017-02-01 23:03] MED LIST changes: +ALBUTEROL0.083 % INH; +BETADINE SOLUTIO4 OZ TOP; +BISR PR; +C1 PO; +C25 PO; +CORDARONE PO; +LANTUSCART SC; +MAGOX4 PO; +MIRALAX POWDER1 PKT PO; +MOMUD PO; +NORCO1 TA1 PO; +NOVOPEN SC; +PERIDEX PO; +PRILOSEC40 MG PO; +PROAMAT5 PO; +PROTONIX PO; +T PO; +TRIPHROCAPS PO
[2017-02-02 00:03] LABS: INFLUENZA A SCREEN NEGATIVE (NEGATIVE); INFLUENZA B SCREEN NEGATIVE (NEGATIVE)
[2017-02-02 00:13] LABS: INTERNATIONAL NORMAL RATI 1.9 UNITS (-); PARTIAL THROMBO TIME 55.8 SEC (22.5-37.2); PROTIME (NOT ORD) 21.2 SEC (12.0-14.5)
[2017-02-02 06:32] LABS: HEMATOCRIT 23.9 % (36.0-48.0); HEMOGLOBIN 7.6 g/dL (12.0-16.0)
[2017-02-02 06:46] LABS: ALBUMIN 2.1 G/DL (3.5-5.0); BUN (BLOOD UREA NITROGEN) 30 MG/DL (6-23); CALCIUM, SERUM 8.2 MG/DL (8.5-10.4); CHLORIDE, SERUM 98 MMOL/L (96-112); CO2 (CARBON DIOXIDE) 29 MMOL/L (24-34); CREATININE 3.55 MG/DL (0.55-1.02); GFR AFRICAN AMERICAN 14 ML/MIN (>=60); GFR NON AFRICAN AMERICAN 12 ML/MIN (>=60); GLUCOSE, SERUM 98 MG/DL (60-99); PHOSPHORUS, SERUM 3.6 MG/DL (2.5-4.5); POTASSIUM, SERUM 4.6 MMOL/L (3.5-5.3); SODIUM, SERUM 138 MMOL/L (135-148)
[2017-02-02 13:59] LABS: HEMATOCRIT 25.6 % (36.0-48.0); HEMOGLOBIN 8.1 g/dL (12.0-16.0)
[2017-02-02 20:00] LABS: HEMATOCRIT 26.5 % (36.0-48.0); HEMOGLOBIN 8.4 g/dL (12.0-16.0)
[2017-02-03 11:51] LABS: BASOPHILS 0.2 %; BASOPHILS ABSOLUTE 0.02 10/3/uL (0.0-0.16); EOSINOPHILS 1.7 %; EOSINOPHILS ABSOLUTE 0.17 10/3/uL (0.0-0.53); HEMATOCRIT 22.2 % (36.0-48.0); HEMOGLOBIN 7.2 g/dL (12.0-16.0); IMMATURE GRANULOCYTES 0.6 %; IMMATURE GRANULOCYTES ABSOLUTE 0.06 10/3/uL (0.0-0.11); LYMPHOCYTES 15.5 %; LYMPHOCYTES ABSOLUTE 1.52 10/3/uL (0.67-4.30); MANUAL DIFF NO %; MEAN CORPUS HGB CONC 32.4 g/dL (32.0-36.0); MEAN CORPUSCULAR VOLUME 92.5 fL (80-100); MEAN PLATELET VOLUME 9.7 fL (9.2-13.0); MONOCYTES 8.9 %; MONOCYTES ABSOLUTE 0.87 10/3/uL (0.21-1.20); NEUTROPHILS 73.1 %; NEUTROPHILS ABSOLUTE 7.19 10/3/uL (2.02-8.40); PLATELET COUNT 237 10/3/uL (150-400); WHITE BLOOD CELLS 9.8 10/3/uL (4.5-10.5)
[2017-02-03 12:02] LABS: CHLORIDE, SERUM 95 MMOL/L (96-112); CO2 (CARBON DIOXIDE) 26 MMOL/L (24-34); PHOSPHORUS, SERUM 3.4 MG/DL (2.5-4.5); SODIUM, SERUM 133 MMOL/L (135-148)
[2017-02-03 12:04] LABS: BUN (BLOOD UREA NITROGEN) 48 MG/DL (6-23); GFR AFRICAN AMERICAN 9 ML/MIN (>=60); GFR NON AFRICAN AMERICAN 8 ML/MIN (>=60); GLUCOSE, SERUM 227 MG/DL (60-99)
[2017-02-03 12:57] LABS: PROCALCITONIN 0.29 ng/mL (<0.5)
[2017-02-04 06:15] LABS: BASOPHILS 0.2 %; BASOPHILS ABSOLUTE 0.02 10/3/uL (0.0-0.16); EOSINOPHILS 1.7 %; EOSINOPHILS ABSOLUTE 0.16 10/3/uL (0.0-0.53); HEMATOCRIT 22.3 % (36.0-48.0); IMMATURE GRANULOCYTES ABSOLUTE 0.09 10/3/uL (0.0-0.11); LYMPHOCYTES 19.5 %; MEAN CORPUS HGB CONC 31.4 g/dL (32.0-36.0); MEAN PLATELET VOLUME 9.8 fL (9.2-13.0); MONOCYTES 8.9 %; MONOCYTES ABSOLUTE 0.82 10/3/uL (0.21-1.20); NEUTROPHILS 68.7 %; NEUTROPHILS ABSOLUTE 6.35 10/3/uL (2.02-8.40); PLATELET COUNT 246 10/3/uL (150-400); RBC DISTRIBUTION WIDTH 17.1 % (12.0-16.0); RED CELL COUNT 2.33 10/6/uL (4.0-5.6); WHITE BLOOD CELLS 9.2 10/3/uL (4.5-10.5)
[2017-02-04 06:16] LABS: MANUAL DIFF NO %; MEAN CORPUSCULAR VOLUME 95.7 fL (80-100)
[2017-02-04 06:22] LABS: INTERNATIONAL NORMAL RATI 1.8 UNITS (-)
[2017-02-04 06:37] LABS: ALBUMIN 2.4 G/DL (3.5-5.0); BUN (BLOOD UREA NITROGEN) 20 MG/DL (6-23); CALCIUM, SERUM 8.4 MG/DL (8.5-10.4); CHLORIDE, SERUM 100 MMOL/L (96-112); CO2 (CARBON DIOXIDE) 28 MMOL/L (24-34); CREATININE 2.95 MG/DL (0.55-1.02); GFR AFRICAN AMERICAN 17 ML/MIN (>=60); GFR NON AFRICAN AMERICAN 15 ML/MIN (>=60); GLUCOSE, SERUM 129 MG/DL (60-99); PHOSPHORUS, SERUM 2.1 MG/DL (2.5-4.5); POTASSIUM, SERUM 4.3 MMOL/L (3.5-5.3); SODIUM, SERUM 138 MMOL/L (135-148)
[2017-02-04 15:53] LABS: HEMATOCRIT 22.7 % (36.0-48.0)
[2017-02-05 12:45] LABS: BASOPHILS 0.4 %; BASOPHILS ABSOLUTE 0.03 10/3/uL (0.0-0.16); EOSINOPHILS 3.6 %; HEMATOCRIT 22.3 % (36.0-48.0); HEMOGLOBIN 7.1 g/dL (12.0-16.0); IMMATURE GRANULOCYTES 1.2 %; LYMPHOCYTES ABSOLUTE 1.35 10/3/uL (0.67-4.30); MEAN CORPUS HGB CONC 31.8 g/dL (32.0-36.0); MEAN CORPUSCULAR VOLUME 94.1 fL (80-100); MEAN PLATELET VOLUME 9.6 fL (9.2-13.0); MONOCYTES 8.6 %; MONOCYTES ABSOLUTE 0.72 10/3/uL (0.21-1.20); NEUTROPHILS 70.2 %; NEUTROPHILS ABSOLUTE 5.92 10/3/uL (2.02-8.40); PLATELET COUNT 240 10/3/uL (150-400); RED CELL COUNT 2.37 10/6/uL (4.0-5.6); WHITE BLOOD CELLS 8.4 10/3/uL (4.5-10.5)
[2017-02-05 12:46] LABS: MANUAL DIFF NO %
[2017-02-05 13:01] LABS: ALBUMIN 2.2 G/DL (3.5-5.0); BUN (BLOOD UREA NITROGEN) 29 MG/DL (6-23); CALCIUM, SERUM 8.4 MG/DL (8.5-10.4); CHLORIDE, SERUM 99 MMOL/L (96-112); CO2 (CARBON DIOXIDE) 29 MMOL/L (24-34); CREATININE 3.91 MG/DL (0.55-1.02); GFR AFRICAN AMERICAN 12 ML/MIN (>=60); GFR NON AFRICAN AMERICAN 11 ML/MIN (>=60); GLUCOSE, SERUM 97 MG/DL (60-99); PHOSPHORUS, SERUM 2.6 MG/DL (2.5-4.5); POTASSIUM, SERUM 4.5 MMOL/L (3.5-5.3); SODIUM, SERUM 137 MMOL/L (135-148)
[2017-02-05 14:41] LABS: INTERNATIONAL NORMAL RATI 1.4 UNITS (-)
[2017-02-05 14:45] LABS: PROTIME (NOT ORD) 17.3 SEC (12.0-14.5)
[2017-02-06 06:04] LABS: BASOPHILS 0.3 %; BASOPHILS ABSOLUTE 0.02 10/3/uL (0.0-0.16); EOSINOPHILS 4.6 %; EOSINOPHILS ABSOLUTE 0.36 10/3/uL (0.0-0.53); HEMATOCRIT 22.5 % (36.0-48.0); IMMATURE GRANULOCYTES 0.9 %; IMMATURE GRANULOCYTES ABSOLUTE 0.07 10/3/uL (0.0-0.11); LYMPHOCYTES 20.2 %; LYMPHOCYTES ABSOLUTE 1.57 10/3/uL (0.67-4.30); MEAN CORPUS HGB CONC 30.7 g/dL (32.0-36.0); MEAN CORPUSCULAR HEMOGLOB 29.6 pg (26.0-34.0); MEAN CORPUSCULAR VOLUME 96.6 fL (80-100); MEAN PLATELET VOLUME 10.1 fL (9.2-13.0); MONOCYTES 8.8 %; MONOCYTES ABSOLUTE 0.68 10/3/uL (0.21-1.20); NEUTROPHILS 65.2 %; NEUTROPHILS ABSOLUTE 5.07 10/3/uL (2.02-8.40); PLATELET COUNT 262 10/3/uL (150-400); RBC DISTRIBUTION WIDTH 17.2 % (12.0-16.0); RED CELL COUNT 2.33 10/6/uL (4.0-5.6); WHITE BLOOD CELLS 7.8 10/3/uL (4.5-10.5)
[2017-02-06 06:06] LABS: MANUAL DIFF NO %
[2017-02-06 06:28] LABS: ALBUMIN 2.2 G/DL (3.5-5.0); CALCIUM, SERUM 8.3 MG/DL (8.5-10.4); CHLORIDE, SERUM 103 MMOL/L (96-112); CO2 (CARBON DIOXIDE) 30 MMOL/L (24-34); PHOSPHORUS, SERUM 1.9 MG/DL (2.5-4.5); SODIUM, SERUM 140 MMOL/L (135-148)
[2017-02-06 06:31] LABS: BUN (BLOOD UREA NITROGEN) 11 MG/DL (6-23); GFR AFRICAN AMERICAN 25 ML/MIN (>=60); GFR NON AFRICAN AMERICAN 21 ML/MIN (>=60); GLUCOSE, SERUM 124 MG/DL (60-99)
[2017-02-07 07:30] LABS: BASOPHILS 0.1 %; BASOPHILS ABSOLUTE 0.01 10/3/uL (0.0-0.16); EOSINOPHILS 3.8 %; EOSINOPHILS ABSOLUTE 0.32 10/3/uL (0.0-0.53); IMMATURE GRANULOCYTES 0.8 %; IMMATURE GRANULOCYTES ABSOLUTE 0.07 10/3/uL (0.0-0.11); LYMPHOCYTES 19.9 %; LYMPHOCYTES ABSOLUTE 1.66 10/3/uL (0.67-4.30); MEAN CORPUS HGB CONC 31.1 g/dL (32.0-36.0); MEAN CORPUSCULAR HEMOGLOB 29.7 pg (26.0-34.0); MEAN CORPUSCULAR VOLUME 95.4 fL (80-100); MEAN PLATELET VOLUME 9.5 fL (9.2-13.0); MONOCYTES 9.1 %; MONOCYTES ABSOLUTE 0.76 10/3/uL (0.21-1.20); NEUTROPHILS 66.3 %; NEUTROPHILS ABSOLUTE 5.51 10/3/uL (2.02-8.40); PLATELET COUNT 247 10/3/uL (150-400); RBC DISTRIBUTION WIDTH 16.7 % (12.0-16.0); RED CELL COUNT 2.19 10/6/uL (4.0-5.6); WHITE BLOOD CELLS 8.3 10/3/uL (4.5-10.5)
[2017-02-07 07:34] LABS: HEMATOCRIT 20.9 % (36.0-48.0); HEMOGLOBIN 6.5 g/dL (12.0-16.0)
[2017-02-07 07:37] LABS: MANUAL DIFF NO %
[2017-02-07 07:40] LABS: ALBUMIN 2.2 G/DL (3.5-5.0); BUN (BLOOD UREA NITROGEN) 19 MG/DL (6-23); CALCIUM, SERUM 8.3 MG/DL (8.5-10.4); CHLORIDE, SERUM 100 MMOL/L (96-112); CO2 (CARBON DIOXIDE) 27 MMOL/L (24-34); CREATININE 3.25 MG/DL (0.55-1.02); GFR AFRICAN AMERICAN 15 ML/MIN (>=60); GFR NON AFRICAN AMERICAN 13 ML/MIN (>=60); GLUCOSE, SERUM 91 MG/DL (60-99); PHOSPHORUS, SERUM 2.4 MG/DL (2.5-4.5); POTASSIUM, SERUM 4.3 MMOL/L (3.5-5.3); SODIUM, SERUM 135 MMOL/L (135-148)
[2017-02-07 17:36] LABS: HEMATOCRIT 23.2 % (36.0-48.0); HEMOGLOBIN 6.9 g/dL (12.0-16.0)
[2017-02-08 07:02] LABS: BASOPHILS 0.2 %; BASOPHILS ABSOLUTE 0.02 10/3/uL (0.0-0.16); EOSINOPHILS 4.3 %; IMMATURE GRANULOCYTES 0.6 %; IMMATURE GRANULOCYTES ABSOLUTE 0.06 10/3/uL (0.0-0.11); LYMPHOCYTES 14.2 %; LYMPHOCYTES ABSOLUTE 1.32 10/3/uL (0.67-4.30); MEAN CORPUS HGB CONC 31.3 g/dL (32.0-36.0); MEAN CORPUSCULAR HEMOGLOB 30.1 pg (26.0-34.0); MEAN CORPUSCULAR VOLUME 96.2 fL (80-100); MEAN PLATELET VOLUME 9.7 fL (9.2-13.0); MONOCYTES 9.2 %; MONOCYTES ABSOLUTE 0.85 10/3/uL (0.21-1.20); NEUTROPHILS 71.5 %; NEUTROPHILS ABSOLUTE 6.63 10/3/uL (2.02-8.40); PLATELET COUNT 248 10/3/uL (150-400); WHITE BLOOD CELLS 9.3 10/3/uL (4.5-10.5)
[2017-02-08 07:03] LABS: HEMATOCRIT 25.6 % (36.0-48.0); MANUAL DIFF NO %; RED CELL COUNT 2.66 10/6/uL (4.0-5.6)
[2017-02-08 07:32] LABS: ALBUMIN 2.2 G/DL (3.5-5.0); BUN (BLOOD UREA NITROGEN) 14 MG/DL (6-23); CALCIUM, SERUM 8.4 MG/DL (8.5-10.4); CHLORIDE, SERUM 101 MMOL/L (96-112); CO2 (CARBON DIOXIDE) 28 MMOL/L (24-34); CREATININE 2.22 MG/DL (0.55-1.02); GFR AFRICAN AMERICAN 25 ML/MIN (>=60); GFR NON AFRICAN AMERICAN 21 ML/MIN (>=60); GLUCOSE, SERUM 92 MG/DL (60-99); PHOSPHORUS, SERUM 2.5 MG/DL (2.5-4.5); POTASSIUM, SERUM 4.2 MMOL/L (3.5-5.3); SODIUM, SERUM 138 MMOL/L (135-148)
[2017-02-08 15:36] LABS: HEMATOCRIT 26.6 % (36.0-48.0); HEMOGLOBIN 8.2 g/dL (12.0-16.0)
[2017-02-09 07:15] LABS: BASOPHILS 0.3 %; BASOPHILS ABSOLUTE 0.03 10/3/uL (0.0-0.16); EOSINOPHILS 4.8 %; EOSINOPHILS ABSOLUTE 0.47 10/3/uL (0.0-0.53); HEMATOCRIT 25.4 % (36.0-48.0); HEMOGLOBIN 7.9 g/dL (12.0-16.0); IMMATURE GRANULOCYTES 0.8 %; IMMATURE GRANULOCYTES ABSOLUTE 0.08 10/3/uL (0.0-0.11); LYMPHOCYTES 17.5 %; MEAN CORPUS HGB CONC 31.1 g/dL (32.0-36.0); MEAN CORPUSCULAR VOLUME 96.6 fL (80-100); MEAN PLATELET VOLUME 9.6 fL (9.2-13.0); MONOCYTES 8.7 %; MONOCYTES ABSOLUTE 0.85 10/3/uL (0.21-1.20); NEUTROPHILS 67.9 %; PLATELET COUNT 248 10/3/uL (150-400); RED CELL COUNT 2.63 10/6/uL (4.0-5.6); WHITE BLOOD CELLS 9.7 10/3/uL (4.5-10.5)
[2017-02-09 07:30] LABS: MANUAL DIFF NO %
== END 2017-02-09 14:50 | DRG 374 ==
LOC: ER 23:03 → 2SO 02-02 00:42
PROVIDERS: Hospitalist; Internal Medicine Gastroenterology; Internal Medicine Nephrology; Nurse Practitioner; Nurse Practitioner Family
PROC: 30233N1 Transfusion of Nonautologous Red Blood Cells into Peripheral Vein, Percutaneous Approach (ICD-10-PCS; 2017-02-02)
PROC: 5A1D60Z (ICD-10-PCS; principal; 2017-02-03)
PROC: 0DJD8ZZ Inspection of Lower Intestinal Tract, Via Natural or Artificial Opening Endoscopic (ICD-10-PCS; 2017-02-05 08:00)
PROC: 0DJ08ZZ Inspection of Upper Intestinal Tract, Via Natural or Artificial Opening Endoscopic (ICD-10-PCS; 2017-02-05 08:00)
DX: D49.0 Neoplasm of unspecified behavior of digestive system (principal); N18.6 End stage renal disease; I95.89 Other hypotension; J90 Pleural effusion, not elsewhere classified; I12.0 Hypertensive chronic kidney disease with stage 5 chronic kidney disease or end stage renal disease; D62 Acute posthemorrhagic anemia; K92.2 Gastrointestinal hemorrhage, unspecified; E11.22 Type 2 diabetes mellitus with diabetic chronic kidney disease; K57.30 Diverticulosis of large intestine without perforation or abscess without bleeding; I48.91 Unspecified atrial fibrillation; E11.621 Type 2 diabetes mellitus with foot ulcer; L97.511 Non-pressure chronic ulcer of other part of right foot limited to breakdown of skin; D64.9 Anemia, unspecified; Z99.2 Dependence on renal dialysis; I25.10 Atherosclerotic heart disease of native coronary artery without angina pectoris; K44.9 Diaphragmatic hernia without obstruction or gangrene; G47.33 Obstructive sleep apnea (adult) (pediatric); Z88.2 Allergy status to sulfonamides; Z88.1 Allergy status to other antibiotic agents; Z88.5 Allergy status to narcotic agent; Z88.8 Allergy status to other drugs, medicaments and biological substances; Z95.1 Presence of aortocoronary bypass graft; Z86.14 Personal history of Methicillin resistant Staphylococcus aureus infection; Z79.4 Long term (current) use of insulin; I25.2 Old myocardial infarction; Z95.2 Presence of prosthetic heart valve; Z79.01 Long term (current) use of anticoagulants; Z85.89 Personal history of malignant neoplasm of other organs and systems
CPT/HCPCS: 36415; 36430; 71010; 71250; 74176; 74177; 80053; 80069; 82272; 82962; 83605; 83735; 84145; 85014; 85018; 85025; 85610; 85730; 86850; 86900; 86901; 86920; 87040; 87045; 87046; 87046-59; 87328; 87329; 87493; 87493-59; 87804; 87899; 87899-59; 89055; 96374; 97110-GP; 97162-GP; 97530-GP; 99285; A9270-GY; C9113; G0257; G8978-CM-GP; G8979-CL-GP; J0885; J1956; J2405; P9016; P9047

== ENCOUNTER 2017-04-21 18:57 | Inpatient (IN) | payer MEDICARE ==
--- NOTE | ~2017-04-21 | DS ---
Discharge Summary [facility] [address] [facility] [place]. [address] NAME: RAI ALICEA : 44 STATUS : DIS IN LESLYE#: [id number] AGE: 76 ADM/REG DATE : 04/21/17 MR#: [id number] REPORT SERV DATE: 05/15/17 DICTATED BY: ALMA TELLEZ DATE: 05/14/17 REPORT STATUS : Draft TRANSCRIBED BY: DANA DATE: 05/14/17 Data Collection from hospitalization DISCHARGE DIAGNOSES: 1. Fall with right pubic ramus fracture. 2. Deconditioning. 3. End-stage renal disease. 4. Hypoglycemia. 5. Coronary artery disease. 6. Type 2 diabetes mellitus. 7. Atrial fibrillation. 8. Obstructive sleep apnea. 9. History of aortic valve replacement. 10.Coronary artery disease, status post coronary artery bypass grafting. 11.History of tracheostomy for respiratory failure. 12.History of methicillin-resistant Staphylococcus aureus sepsis. 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 14.History of IVC filter placement. CONSULTATIONS: Dr. Ole Olvera. PROCEDURES: 1. CT scan of the brain without contrast, 04/21/2017. 2. CT scan of the pelvis without contrast, 04/21/2017. DISCHARGE MEDICATIONS: Aspirin 81 mg daily, Lipitor 20 mg at bedtime, Cordarone 200 mg daily, Coreg 1.5625 mg twice a day, Lexapro 5 mg daily, Flonase nasal spray one spray nasally as instructed, Neurontin 100 mg twice a day, heparin 5000 units subcutaneously every eight hours, NovoLog injection insulin as instructed, Lantus 5 units subcutaneously as instructed, Claritin 10 mg daily, Mag-Ox 400 mg at bedtime, Prilosec 40 mg twice a day, MiraLax powder one packet daily, Florastor 250 mg daily, ProAmatine 5 mg three times a day, Hard [place] one capsule daily, Percocet 5/325 one tablet every six hours as needed. CONDITION ON DISCHARGE: Stable. DISPOSITION: The patient was discharged to [facility] on a diabetic/vegetarian diet with activities as instructed. HOSPITAL COURSE: This is a 76-year-old female, who dialyzes on Mondays, Wednesdays, and Fridays. She reported having a fall from a seated position on her toilet at home while attempting to reach for something near the toilet in the floor. She did not strike her head or other parts of her body. Apparently, she had suffered according to the CT scan imaging a nondisplaced hip fracture. She continued to have some level of pain, but it was tolerable with medication assistance. She was previously an inpatient here on 02/03/2017, where she had been admitted for workup for possible GI bleed and an elevated white count. She had previously been maintained on Coumadin for her diagnosis of atrial fibrillation. On review of her current medications as well as the discharge medications on 02/14/2017, it appears that she was discharged without Coumadin and had been maintained such going forward. She Discharge Summary [place] [address] [facility] [place] [address] NAME: RAI ALICEA : 42 STATUS : DIS IN PAT#: [id number] AGE: 76 ADM/REG DATE : 04/21/17 MR#: [id number] REPORT SERV DATE: 05/15/17 DICTATED BY: ALMA TELLEZ DATE: 05/14/17 REPORT STATUS : Draft TRANSCRIBED BY: DANA DATE: 05/14/17 was admitted to the hospital at this time for further evaluation and treatment. Upon admission, her chest x-ray showed stable cardiomegaly with prior valve replacement and bibasilar atelectasis versus infiltrate. A CT scan of the brain revealed no acute intracranial hemorrhage or intracranial pathology. There was a stable pattern of moderate advanced diffuse cerebral involutional changes and mild deep white matter chronic microvascular changes. Superimposed was a focal 1 cm deep white matter chronic-appearing CVA, left frontal lobe versus interval development of an asymmetric chronic microvascular change. There was a 4 mm old infarct in the right cerebral hemisphere, which was new from 2012. CT scan of the pelvis without contrast revealed subtle contour deformity of inferior right pubic ramus and subtle cortical irregularity of inferior margin of the anterior column of right acetabulum, which may represent a nondisplaced fracture site in the appropriate clinical setting. Creatinine level was 2.67. Her pain control improved with IV narcotics. Her INR level was going to be checked. We would protect the right upper extremity fistula. The following day, she was evaluated by Occupational and Physical Therapy. She had no new complaints. She had no edema. Hemodialysis therapy was performed. On 04/25/2017, the patient was seen by Dr. Ole Olvera. The patient had complained of increased pain in the right groin and hip. The patient does have x-ray evidence of severe osteopenia and lumbar compression fractures. The patient was felt to have a subacute right pubic ramus fracture. She was going to attempt to mobilize. She would be weightbearing as tolerated for transfer and gait training. It was felt that she would need short-term [facility] facility. She continued to undergo hemodialysis therapy. She had no new complaints. The patient stated she was ready to go to [facility]. She had no edema. She had some generalized weakness. Discharge planning was performed. She had no new issues. On 05/01/2017, she was alert and cooperative. She had no focal deficits. She had no edema. Discharge instructions were given. Due to her improved and stable condition, she was discharged to [facility] with the above-stated instructions. Information collected by: Melissa Coulter I submit the above information as my discharge summary. TG/MODRicardo Alma Tellez M.D. / [id number] CC: MD Mik Lazo,Liliana Olvera M.D. [facility]
--- NOTE | ~2017-04-21 | HP ---
History And Physical [place] [address] [place]. [address] NAME: RAI ALICEA : 44 STATUS : ADM Cristel PAT#: [id number] AGE: 76 ADM/REG DATE : 04/21/17 MR#: [id number] REPORT SERV DATE: 04/22/17 DICTATED BY: DATE: REPORT STATUS : Draft TRANSCRIBED BY: MODL DATE: 04/22/17 DATE OF ADMISSION: 04/22/2017 REASON FOR ADMISSION: Followed home with noted continuing pain and possible hip fracture. HISTORY OF PRESENT ILLNESS: A very pleasant 76-year-old female patient, who dialyzes on Friday, Friday, Friday, schedule at [facility]. She reports a fall from a seated position on her toilet at home while attempting to reach for something near to the toilet in the floor. She did not strike her head or other parts of her body. Apparently, has suffered according to CT imaging a nondisplaced hip fracture. She continues to have some level of pain, but tolerable with medication assistance. She was previously inpatient here on 02/03/2017, where she was admitted for a workup for possible GI bleed and an elevated white count. She had previously been maintained on Coumadin for her diagnosis of atrial fibrillation. However, in review of her current medications as well as the discharge medications at time on 02/14/2017, it appears that she was discharged without Coumadin and has been maintained such going forward. She is awake, alert, oriented x3. Sitting at bedside during evaluation with Therapy Services in her room. Her is present during evaluation. PAST MEDICAL HISTORY: Includes end-stage renal disease, Friday, Friday, Friday, hemodialysis via right upper extremity fistula, [facility], history is also positive for coronary artery disease, post-emergent CABG on 09/22/2016, postoperative course with respiratory failure, tracheostomy 10/09/2016, PEG tube placement on or about the same date which have both been removed, hypertension, obstructive sleep apnea, atrial fibrillation with previous chronic Coumadin use and now appears to be removed, history of mucous plugging with whiteout chest x-ray, aortic valve replacement, MRSA sepsis, diabetes mellitus type 2, history of calciphylaxis, history of IVC filter, chronic debility, and recent falls. SOCIAL HISTORY: No ETOH. No illicit drugs. No tobacco. She lives locally with her family. FAMILY HISTORY: Noncontributory and not reviewed during this consultation and admission. ALLERGIES: LISTED TO NITROFURANTOIN, SULFA, CODEINE, FLUCONAZOLE, AND AMOXICILLIN. ACTIVE MEDICATIONS: Include Cordarone 200 mg daily, ASA 81 mg daily, Lipitor 20 mg p.o. at bedtime, Biotin 1 cap daily, carvedilol 3.125 mg p.o. b.i.d., Lexapro 5 mg p.o. daily, Flonase one spray IDA daily, Neurontin 100 mg p.o. daily, NovoLog via sliding scale, Lantus 10 units subcu at bedtime, Claritin 10 mg daily, magnesium oxide 400 mg p.o. at bedtime, ProAmatine 5 p.o. t.i.d., Prilosec 40 mg p.o. b.i.d., Percocet one tab 5/325 q.6 hours p.r.n., MiraLAX one packet daily, and Florastor 250 mg p.o. daily. REVIEW OF SYSTEMS: Completed. Please see HPI for pertinent details. PHYSICAL EXAMINATION: VITAL SIGNS: Blood pressure at 131/60, respiratory rate at 16, heart rate 56 beats per History And Physical [address] [address] NAME: RAI ALICEA : 44 STATUS : ADM Cristel PAT#: [id number] AGE: 76 ADM/REG DATE : 04/21/17 MR#: [id number] REPORT SERV DATE: 04/22/17 DICTATED BY: DATE: REPORT STATUS : Draft TRANSCRIBED BY: MODL DATE: 04/22/17 minute. She is 95% on 3 L. GENERAL: She is awake, alert, oriented x3. Sitting on the bedside with therapy staff during evaluation. HEENT: Normocephalic, atraumatic. Normal ocular movements. No scleral icterus. No conjunctival pallor is appreciated. NECK: Supple without thyromegaly. No JVD or mass. CHEST: Shows positive S1 and S2. No rubs or gallops. LUNGS: Diminished throughout. Normal expansion and effort bilaterally. GI: Shows positive bowel sounds in all four quadrants. No appreciable mass. No tenderness. : Deferred. NEUROLOGIC: She appears to be grossly intact. Nonfocal. SKIN: Warm, dry, and intact to visualized surfaces. No rash, lesions, or ecchymosis. LABORATORY DATA: Pertinent labs and imaging to this Evaluation, chest x-ray shows stable cardiomegaly with prior valve replacement and bibasilar atelectasis versus infiltrate. CT of the brain is notable for no acute intracranial hemorrhage or intracranial pathology, stable pattern of moderate advanced diffuse cerebral involutional changes, mild deep white matter chronic microvascular changes, superimposed is a focal 1 cm deep white matter, chronic-appearing CVA left frontal lobe versus interval development of an asymmetric chronic microvascular change. There is also noted a 4 mm old infarct in the right cerebral hemisphere new from 2012. CT of pelvis without contrast is notable for subtle contour deformity inferior right pubic ramus and subtle cortical irregularity inferior margin of the anterior column right acetabulum which may represent a nondisplaced fracture site in the appropriate clinical setting. This is not identify prior to 02/07/2017. Sodium 136, potassium 3.7, chloride 96, CO2 of 33, BUN 13, creatinine 2.67. Reflected GFR of 17 mL/minute, glucose of 102, calcium 9.0, magnesium 1.9, albumin 3.1. Alkaline phos 147, ALT and AST at 12 and 18. Troponin 0.06. WBC 7.4, RBC 3.30, hemoglobin 10, hematocrit 31.5, platelets at 200. IMPRESSION AND PLAN: This is an end-stage renal disease. The patient is a 76-year-old female patient with a long medical history including atrial fibrillation, coronary artery disease, previous CABG with subsequent tracheotomy and PEG tube which is now removed with recent inpatient admission in 02/2017 for leukocytosis, fever, and GI bleed. She now presents to [facility] with a complaint of a low fall from a toilet at home and may according to CT imaging have a nondisplaced hip fracture. She does have pain which is improved and is controlled with use of IV narcotics and she is participating with Therapy Services this morning. We will continue her PT and OT. Ask Ortho for evaluation for any further need in intervention. Continue her Friday, Friday, Friday hemodialysis. She appears to be no longer on Coumadin. We will check her INR to assure no elevation and continue her ASA as per usual for her atrial fibrillation. Discharge planning will be based off recommendations from Orthopedics as well as physical and occupational therapy in this patient will likely benefit from inpatient rehab and I have discussed this patient this morning with liaisons from local rehab agencies in preparation for initiation of discharge planning. Maintain her on a renal diet. Strict I's and Os. Daily weights. Protect her right upper extremity fistula. Further modify treatment plan based off the clinical presentation, the patient's laboratory results, and further consultation with renal attending. We appreciate the assistance of Orthopedics as well as Therapy Services in History And Physical [address] [facility]. [address] NAME: RAI ALICEA : 44 STATUS : ADM Cristel PAT#: [id number] AGE: 76 ADM/REG DATE : 04/21/17 MR#: [id number] REPORT SERV DATE: 04/22/17 DICTATED BY: DATE: REPORT STATUS : Draft TRANSCRIBED BY: DANA DATE: 04/22/17 providing care and input for this patient. /DANA Edilberto Watson NP / [id number] CC: MD Liliana Lazo
[2017-04-21 20:38] LABS: BASOPHILS 0.3 %; BASOPHILS ABSOLUTE 0.02 10/3/uL (0.0-0.16); EOSINOPHILS 8.1 %; ER CBC TAT 0 Hrs 11 Mins; IMMATURE GRANULOCYTES 0.7 %; IMMATURE GRANULOCYTES ABSOLUTE 0.05 10/3/uL (0.0-0.11); LYMPHOCYTES 31.3 %; LYMPHOCYTES ABSOLUTE 2.31 10/3/uL (0.67-4.30); MEAN CORPUS HGB CONC 31.7 g/dL (32.0-36.0); MEAN CORPUSCULAR HEMOGLOB 30.3 pg (26.0-34.0); MEAN CORPUSCULAR VOLUME 95.5 fL (80-100); MONOCYTES 8.8 %; MONOCYTES ABSOLUTE 0.65 10/3/uL (0.21-1.20); NEUTROPHILS 50.8 %; NEUTROPHILS ABSOLUTE 3.74 10/3/uL (2.02-8.40); PLATELET COUNT 200 10/3/uL (150-400); RBC DISTRIBUTION WIDTH 18.4 % (12.0-16.0); WHITE BLOOD CELLS 7.4 10/3/uL (4.5-10.5)
[2017-04-21 20:40] LABS: HEMATOCRIT 31.5 % (36.0-48.0); MANUAL DIFF NO %
[2017-04-21 20:45] LABS: INTERNATIONAL NORMAL RATI 1.1 UNITS (-); PARTIAL THROMBO TIME 28.6 SEC (22.5-37.2)
[2017-04-21 20:51] LABS: ALBUMIN 3.1 G/DL (3.5-5.0); ALKALINE PHOSPHATASE 147 U/L (45-117); BUN (BLOOD UREA NITROGEN) 13 MG/DL (6-23); CHEST PAIN PROFILE TAT 0 Hrs 24 Mins; CHLORIDE, SERUM 96 MMOL/L (96-112); CO2 (CARBON DIOXIDE) 33 MMOL/L (24-34); CREATININE 2.67 MG/DL (0.55-1.02); DIRECT BILIRUBIN 0.3 MG/DL (0.0-0.4); GFR AFRICAN AMERICAN 20 ML/MIN (>=60); GFR NON AFRICAN AMERICAN 17 ML/MIN (>=60); GLUCOSE, SERUM 102 MG/DL (60-99); INDIRECT BILIRUBIN(NOT ORDER) 0.4 MG/DL (0.1-0.9); POTASSIUM, SERUM 3.7 MMOL/L (3.5-5.3); SGOT(AST) 18 U/L (5-40); SGPT(ALT) 12 U/L (5-65); SODIUM, SERUM 136 MMOL/L (135-148); TOTAL BILIRUBIN 0.7 MG/DL (0-1.2); TOTAL PROTEIN 8.5 G/DL (6.0-8.5); TROPONIN I 0.06 NG/ML (<0.05)
[2017-04-21] MEDS ORDERED: LANTUS SC (23:15)
[2017-04-21] MEDS ORDERED: FLONASE NAS (23:15)
[2017-04-21] MEDS ORDERED: ASAB PO (23:16)
[2017-04-21] MEDS ORDERED: LIPITOR20 PO (23:16)
[2017-04-21] MEDS ORDERED: PRILOSEC40 MG PO (23:16)
[2017-04-21] MEDS ORDERED: CORDARONE PO (23:16)
[2017-04-21] MEDS ORDERED: COREG3 PO (23:17)
[2017-04-21] MEDS ORDERED: LEXAPRO5 MG PO (23:17)
[2017-04-21] MEDS ORDERED: FLORASTOR250 MG PO (23:17)
[2017-04-21] MEDS ORDERED: NEUR100 PO (23:18)
[2017-04-21] MEDS ORDERED: PROAMAT5 PO (23:18)
[2017-04-21] MEDS ORDERED: MAGOX4 PO (23:18)
[2017-04-21] MEDS ORDERED: CLARIT10 PO (23:18)
[2017-04-21] MEDS ORDERED: PCET PO (23:19)
[2017-04-21] MEDS ORDERED: MIRALAX POWDER1 PKT PO (23:19)
[2017-04-21] MEDS ORDERED: HARD NAILS PO (23:19)
[2017-04-23 14:15] LABS: BASOPHILS 0.2 %; BASOPHILS ABSOLUTE 0.01 10/3/uL (0.0-0.16); EOSINOPHILS 9.2 %; EOSINOPHILS ABSOLUTE 0.51 10/3/uL (0.0-0.53); HEMOGLOBIN 8.4 g/dL (12.0-16.0); IMMATURE GRANULOCYTES 0.5 %; IMMATURE GRANULOCYTES ABSOLUTE 0.03 10/3/uL (0.0-0.11); LYMPHOCYTES 27.9 %; LYMPHOCYTES ABSOLUTE 1.54 10/3/uL (0.67-4.30); MEAN CORPUS HGB CONC 31.9 g/dL (32.0-36.0); MEAN CORPUSCULAR HEMOGLOB 30.4 pg (26.0-34.0); MEAN CORPUSCULAR VOLUME 95.3 fL (80-100); MEAN PLATELET VOLUME 10.5 fL (9.2-13.0); MONOCYTES 8.2 %; MONOCYTES ABSOLUTE 0.45 10/3/uL (0.21-1.20); NEUTROPHILS ABSOLUTE 2.98 10/3/uL (2.02-8.40); PLATELET COUNT 201 10/3/uL (150-400); RBC DISTRIBUTION WIDTH 17.9 % (12.0-16.0); RED CELL COUNT 2.76 10/6/uL (4.0-5.6); WHITE BLOOD CELLS 5.5 10/3/uL (4.5-10.5)
[2017-04-23 14:16] LABS: HEMATOCRIT 26.3 % (36.0-48.0); MANUAL DIFF NO %
[2017-04-23 14:28] LABS: ALBUMIN 2.5 G/DL (3.5-5.0); BUN (BLOOD UREA NITROGEN) 33 MG/DL (6-23); CALCIUM, SERUM 8.4 MG/DL (8.5-10.4); CHLORIDE, SERUM 94 MMOL/L (96-112); CO2 (CARBON DIOXIDE) 28 MMOL/L (24-34); CREATININE 4.74 MG/DL (0.55-1.02); GFR AFRICAN AMERICAN 10 ML/MIN (>=60); GFR NON AFRICAN AMERICAN 8 ML/MIN (>=60); GLUCOSE, SERUM 191 MG/DL (60-99); PHOSPHORUS, SERUM 4.7 MG/DL (2.5-4.5); POTASSIUM, SERUM 4.9 MMOL/L (3.5-5.3); SODIUM, SERUM 131 MMOL/L (135-148)
[2017-04-25 08:28] LABS: BASOPHILS 0.3 %; BASOPHILS ABSOLUTE 0.02 10/3/uL (0.0-0.16); EOSINOPHILS 8.4 %; EOSINOPHILS ABSOLUTE 0.55 10/3/uL (0.0-0.53); HEMATOCRIT 26.9 % (36.0-48.0); HEMOGLOBIN 8.4 g/dL (12.0-16.0); IMMATURE GRANULOCYTES 0.3 %; IMMATURE GRANULOCYTES ABSOLUTE 0.02 10/3/uL (0.0-0.11); LYMPHOCYTES 35.3 %; LYMPHOCYTES ABSOLUTE 2.31 10/3/uL (0.67-4.30); MANUAL DIFF NO %; MEAN CORPUS HGB CONC 31.2 g/dL (32.0-36.0); MEAN CORPUSCULAR HEMOGLOB 30.2 pg (26.0-34.0); MEAN CORPUSCULAR VOLUME 96.8 fL (80-100); MEAN PLATELET VOLUME 9.7 fL (9.2-13.0); MONOCYTES 10.1 %; MONOCYTES ABSOLUTE 0.66 10/3/uL (0.21-1.20); NEUTROPHILS 45.6 %; NEUTROPHILS ABSOLUTE 2.98 10/3/uL (2.02-8.40); PLATELET COUNT 189 10/3/uL (150-400); RBC DISTRIBUTION WIDTH 17.8 % (12.0-16.0); RED CELL COUNT 2.78 10/6/uL (4.0-5.6); WHITE BLOOD CELLS 6.5 10/3/uL (4.5-10.5)
[2017-04-25 08:39] LABS: CHLORIDE, SERUM 101 MMOL/L (96-112); CO2 (CARBON DIOXIDE) 30 MMOL/L (24-34); POTASSIUM, SERUM 5.4 MMOL/L (3.5-5.3); SODIUM, SERUM 137 MMOL/L (135-148)
[2017-04-25 08:41] LABS: BUN (BLOOD UREA NITROGEN) 26 MG/DL (6-23); CREATININE 4.06 MG/DL (0.55-1.02); GFR AFRICAN AMERICAN 12 ML/MIN (>=60); GFR NON AFRICAN AMERICAN 10 ML/MIN (>=60); GLUCOSE, SERUM 103 MG/DL (60-99)
[2017-04-26 07:10] LABS: BASOPHILS 0.3 %; BASOPHILS ABSOLUTE 0.02 10/3/uL (0.0-0.16); EOSINOPHILS 8.8 %; EOSINOPHILS ABSOLUTE 0.56 10/3/uL (0.0-0.53); HEMATOCRIT 27.5 % (36.0-48.0); HEMOGLOBIN 8.4 g/dL (12.0-16.0); IMMATURE GRANULOCYTES 0.3 %; IMMATURE GRANULOCYTES ABSOLUTE 0.02 10/3/uL (0.0-0.11); LYMPHOCYTES 35.3 %; LYMPHOCYTES ABSOLUTE 2.25 10/3/uL (0.67-4.30); MANUAL DIFF NO %; MEAN CORPUS HGB CONC 30.5 g/dL (32.0-36.0); MEAN CORPUSCULAR HEMOGLOB 30.2 pg (26.0-34.0); MEAN CORPUSCULAR VOLUME 98.9 fL (80-100); MEAN PLATELET VOLUME 10.1 fL (9.2-13.0); MONOCYTES 8.8 %; MONOCYTES ABSOLUTE 0.56 10/3/uL (0.21-1.20); NEUTROPHILS 46.5 %; NEUTROPHILS ABSOLUTE 2.96 10/3/uL (2.02-8.40); PLATELET COUNT 196 10/3/uL (150-400); RBC DISTRIBUTION WIDTH 17.5 % (12.0-16.0); RED CELL COUNT 2.78 10/6/uL (4.0-5.6); WHITE BLOOD CELLS 6.4 10/3/uL (4.5-10.5)
[2017-04-26 07:23] LABS: ALBUMIN 3.1 G/DL (3.5-5.0); BUN (BLOOD UREA NITROGEN) 17 MG/DL (6-23); CALCIUM, SERUM 9.1 MG/DL (8.5-10.4); CHLORIDE, SERUM 99 MMOL/L (96-112); CO2 (CARBON DIOXIDE) 32 MMOL/L (24-34); CREATININE 2.84 MG/DL (0.55-1.02); GFR AFRICAN AMERICAN 18 ML/MIN (>=60); GFR NON AFRICAN AMERICAN 16 ML/MIN (>=60); GLUCOSE, SERUM 72 MG/DL (60-99); POTASSIUM, SERUM 4.4 MMOL/L (3.5-5.3); SODIUM, SERUM 136 MMOL/L (135-148)
[2017-04-28 07:32] LABS: BASOPHILS 0.4 %; BASOPHILS ABSOLUTE 0.03 10/3/uL (0.0-0.16); EOSINOPHILS 9.1 %; EOSINOPHILS ABSOLUTE 0.64 10/3/uL (0.0-0.53); HEMATOCRIT 29.2 % (36.0-48.0); HEMOGLOBIN 9.2 g/dL (12.0-16.0); IMMATURE GRANULOCYTES 0.4 %; IMMATURE GRANULOCYTES ABSOLUTE 0.03 10/3/uL (0.0-0.11); LYMPHOCYTES 30.7 %; LYMPHOCYTES ABSOLUTE 2.17 10/3/uL (0.67-4.30); MANUAL DIFF NO %; MEAN CORPUS HGB CONC 31.5 g/dL (32.0-36.0); MEAN CORPUSCULAR HEMOGLOB 30.7 pg (26.0-34.0); MEAN CORPUSCULAR VOLUME 97.3 fL (80-100); MEAN PLATELET VOLUME 10.1 fL (9.2-13.0); MONOCYTES 5.8 %; MONOCYTES ABSOLUTE 0.41 10/3/uL (0.21-1.20); NEUTROPHILS 53.6 %; NEUTROPHILS ABSOLUTE 3.78 10/3/uL (2.02-8.40); PLATELET COUNT 202 10/3/uL (150-400); RBC DISTRIBUTION WIDTH 16.8 % (12.0-16.0); WHITE BLOOD CELLS 7.1 10/3/uL (4.5-10.5)
[2017-04-28 07:46] LABS: ALBUMIN 2.9 G/DL (3.5-5.0); CALCIUM, SERUM 9.3 MG/DL (8.5-10.4); CHLORIDE, SERUM 96 MMOL/L (96-112); SODIUM, SERUM 130 MMOL/L (135-148)
[2017-04-28 07:47] LABS: BUN (BLOOD UREA NITROGEN) 34 MG/DL (6-23); CO2 (CARBON DIOXIDE) 26 MMOL/L (24-34); CREATININE 4.79 MG/DL (0.55-1.02); GFR AFRICAN AMERICAN 10 ML/MIN (>=60); GFR NON AFRICAN AMERICAN 8 ML/MIN (>=60); POTASSIUM, SERUM 5.7 MMOL/L (3.5-5.3)
[2017-04-28 07:48] LABS: GLUCOSE, SERUM 108 MG/DL (60-99); PHOSPHORUS, SERUM 4.1 MG/DL (2.5-4.5)
[2017-04-30 06:17] LABS: BASOPHILS 0.2 %; BASOPHILS ABSOLUTE 0.02 10/3/uL (0.0-0.16); EOSINOPHILS 7.3 %; HEMATOCRIT 26.7 % (36.0-48.0); HEMOGLOBIN 8.2 g/dL (12.0-16.0); IMMATURE GRANULOCYTES 0.4 %; IMMATURE GRANULOCYTES ABSOLUTE 0.03 10/3/uL (0.0-0.11); LYMPHOCYTES 31.3 %; LYMPHOCYTES ABSOLUTE 2.58 10/3/uL (0.67-4.30); MANUAL DIFF NO %; MEAN CORPUS HGB CONC 30.7 g/dL (32.0-36.0); MEAN CORPUSCULAR HEMOGLOB 30.1 pg (26.0-34.0); MEAN CORPUSCULAR VOLUME 98.2 fL (80-100); MEAN PLATELET VOLUME 10.5 fL (9.2-13.0); MONOCYTES 9.1 %; MONOCYTES ABSOLUTE 0.75 10/3/uL (0.21-1.20); NEUTROPHILS 51.7 %; NEUTROPHILS ABSOLUTE 4.25 10/3/uL (2.02-8.40); PLATELET COUNT 190 10/3/uL (150-400); RBC DISTRIBUTION WIDTH 17.1 % (12.0-16.0); RED CELL COUNT 2.72 10/6/uL (4.0-5.6); WHITE BLOOD CELLS 8.2 10/3/uL (4.5-10.5)
[2017-04-30 06:30] LABS: ALBUMIN 3.1 G/DL (3.5-5.0); CALCIUM, SERUM 9.2 MG/DL (8.5-10.4); CHLORIDE, SERUM 100 MMOL/L (96-112); CO2 (CARBON DIOXIDE) 28 MMOL/L (24-34); POTASSIUM, SERUM 4.8 MMOL/L (3.5-5.3); SODIUM, SERUM 134 MMOL/L (135-148)
[2017-04-30 06:34] LABS: BUN (BLOOD UREA NITROGEN) 27 MG/DL (6-23); CREATININE 4.15 MG/DL (0.55-1.02); GFR AFRICAN AMERICAN 12 ML/MIN (>=60); GFR NON AFRICAN AMERICAN 10 ML/MIN (>=60)
[2017-04-30 06:35] LABS: GLUCOSE, SERUM 41 MG/DL (60-99); PHOSPHORUS, SERUM 3.1 MG/DL (2.5-4.5)
[2017-05-01 05:13] LABS: BASOPHILS 0.3 %; BASOPHILS ABSOLUTE 0.02 10/3/uL (0.0-0.16); EOSINOPHILS 5.7 %; EOSINOPHILS ABSOLUTE 0.43 10/3/uL (0.0-0.53); HEMATOCRIT 26.9 % (36.0-48.0); HEMOGLOBIN 8.3 g/dL (12.0-16.0); IMMATURE GRANULOCYTES 0.5 %; IMMATURE GRANULOCYTES ABSOLUTE 0.04 10/3/uL (0.0-0.11); LYMPHOCYTES 34.1 %; LYMPHOCYTES ABSOLUTE 2.57 10/3/uL (0.67-4.30); MEAN CORPUS HGB CONC 30.9 g/dL (32.0-36.0); MEAN CORPUSCULAR HEMOGLOB 30.4 pg (26.0-34.0); MEAN CORPUSCULAR VOLUME 98.5 fL (80-100); MEAN PLATELET VOLUME 10.3 fL (9.2-13.0); NEUTROPHILS 51.4 %; NEUTROPHILS ABSOLUTE 3.88 10/3/uL (2.02-8.40); PLATELET COUNT 191 10/3/uL (150-400); RBC DISTRIBUTION WIDTH 16.9 % (12.0-16.0); RED CELL COUNT 2.73 10/6/uL (4.0-5.6); WHITE BLOOD CELLS 7.5 10/3/uL (4.5-10.5)
[2017-05-01 05:16] LABS: MANUAL DIFF NO %
[2017-05-01 05:18] LABS: ALBUMIN 3.1 G/DL (3.5-5.0); CALCIUM, SERUM 9.1 MG/DL (8.5-10.4); CHLORIDE, SERUM 102 MMOL/L (96-112); CO2 (CARBON DIOXIDE) 29 MMOL/L (24-34); POTASSIUM, SERUM 4.3 MMOL/L (3.5-5.3); SODIUM, SERUM 137 MMOL/L (135-148)
[2017-05-01 05:19] LABS: BUN (BLOOD UREA NITROGEN) 14 MG/DL (6-23); CREATININE 2.79 MG/DL (0.55-1.02); GFR AFRICAN AMERICAN 19 ML/MIN (>=60); GFR NON AFRICAN AMERICAN 16 ML/MIN (>=60); GLUCOSE, SERUM 67 MG/DL (60-99); PHOSPHORUS, SERUM 2.1 MG/DL (2.5-4.5)
== END 2017-05-01 14:32 | DRG 535 ==
LOC: ER 18:57 → 4SO 23:33
PROVIDERS: Emergency Medicine; Internal Medicine Nephrology; Nurse Practitioner; Registered Nurse
PROC: 5A1D60Z (ICD-10-PCS; principal; 2017-04-23)
DX: S72.001A Fracture of unspecified part of neck of right femur, initial encounter for closed fracture (principal); N18.6 End stage renal disease; I48.2 Chronic atrial fibrillation; Z93.0 Tracheostomy status; Z99.2 Dependence on renal dialysis; Z79.01 Long term (current) use of anticoagulants; I25.10 Atherosclerotic heart disease of native coronary artery without angina pectoris; Z95.1 Presence of aortocoronary bypass graft; E11.9 Type 2 diabetes mellitus without complications
CPT/HCPCS: 70450; 71010; 72192; 80048; 80069; 80076; 82962; 83735; 84484; 85025; 85610; 85730; 93005; 97110-GO; 97110-GP; 97116-GP; 97162-GP; 97166-GO; 97530-GP; 97535-GO; 99285; A9270-GY; G0257; J2150; P9047